=== PATIENT | female | born 1965 | race Caucasian/White ===

== ENCOUNTER → 2020-02-11 17:22 | Outpatient (CLI) | payer OTHER, SELFPAY ==
--- NOTE | ~2020-02-11 | XR_ITS ---
EXAMINATION: XR ribs LT 2V INDICATION: Left rib pain, pleurodynia, initial encounter TECHNIQUE: 3 views of the left ribs were obtained. COMPARISON: 01/19/2015 FINDINGS: There is an acute nondisplaced fracture at the anterolateral aspect of the left ninth rib. No additional acute rib fracture is identified. There is mild atelectasis of the left lung base. The heart size is normal. Calcified right lower paratracheal lymph nodes are consistent with old granulom atous disease. There is no pneumothorax. Surgical staple lines are noted in the abdomen. IMPRESSION: 1. Nondisplaced fracture at the anterolateral aspect of the left ninth rib. Reviewed, dictated and finalized at location A.
== END ==
PROVIDERS: PCP Family Medicine; Visit Provider Family Medicine
DX: S22.32XA Fracture of one rib, left side, initial encounter for closed fracture (principal); X58.XXXA Exposure to other specified factors, initial encounter
CPT/HCPCS: 71100

== ENCOUNTER 2023-04-10 17:08 | Emergency (ER) | payer OTHER, SELFPAY ==
--- NOTE | ~2023-04-10 | XR_ITS ---
EXAM: XR ankle RT min 3V DATE: 04/10/2023 17:51 HISTORY: FALL OFF OF TRUCK . COMPARISON: None available. FINDINGS: Decreased mineralization. No fracture or dislocation. No lytic or blastic lesion. Joint sp aces are maintained. Achilles and plantar enthesopathy. The No erosion or periosteal change. Soft tis sues within normal limits. IMPRESSION: No acute osseous finding in the right ankle. Reviewed, dictated and finalized at location K.
--- NOTE | ~2023-04-10 | XR_ITS ---
EXAM: XR knee RT min 4V DATE: 04/10/2023 17:51 HISTORY: FALL OFF OF TRUCK . COMPARISON: None available. FINDINGS: Decreased mineralization. No fracture or dislocation. No lytic or blastic lesion. Small vo lume joint fluid. Mild tricompartmental osteoarthritis. No erosion or periosteal change. Soft tissues within normal limits. IMPRESSION: No acute osseous finding in the right knee. Reviewed, dictated and finalized at location K.
--- NOTE | 2023-04-10 17:12 | ED.LOWEXIN ---
HPI - Extremity Injury (Lower) General Chief Complaint: Extremity Injury, Lower Stated Complaint: Right Knee/Foot Pain Time Seen by Provider: 04/10/23 17:11 Source: patient Mode of arrival: ambulatory Limitations: no limitations History of Present Illness HPI Narrative: Patient is a 50-year-old female presents with right knee and right ankle pain after stepping off the back of a truck. Patient states the drop was further than she thought and right leg gave out and went underneath her. Patient states she did hit left side of head on a bumper. Denies any LOC, headache, vision changes, nausea, vomiting. Reports new tingling to toes that is different than her normal neuropathy. States she notices swelling to knee it is painful to walk. Related Data Home Medications Medication Instructions Recorded Confirmed acetaminophen 300 mg-codeine 60 mg 1 tablet PO Q6-8H PRN Pain 04/10/23 04/10/23 tablet [facility] 04/10/23 Ultra Test strips) duloxetine 60 mg capsule,delayed 60 mg PO DAILY 04/10/23 04/10/23 release gabapentin 600 mg tablet 600 mg PO TID 04/10/23 04/10/23 lancets 33 gauge ([facility] 04/10/23 04/10/23 Plus Lancet) metoprolol succinate 50 mg 50 mg PO DAILY 04/10/23 04/10/23 tablet,extended release 24 hr pantoprazole 40 mg tablet,delayed 40 mg PO DAILY 04/10/23 04/10/23 release topiramate 50 mg tablet 50 mg PO BID 04/10/23 04/10/23 Allergies Allergy/AdvReac Type Severity Reaction Status Date / Time No Known Allergies Allergy Mild Verified 04/10/23 17:11 Review of Systems Review of Systems: All systems reviewed & are unremarkable except as noted in HPI and below Constitutional: Constitutional: Denies body ache(s), Denies chills, Denies fatigue, Denies fever(s), Denies headache(s), Denies malaise and Denies weakness Eyes: Eyes: Denies blurry vision, Denies irritation and Denies loss of vision ENT: Denies otalgia, Denies headache(s), Denies nasal discharge, Denies sinus pain and Denies sore throat Cardiovascular: Cardiovascular: Denies chest pain, Denies irregular heart rhythm and Denies dyspnea Respiratory: Respiratory: Denies dyspnea Gastrointestinal: Gastrointestinal: Denies abdominal pain, Denies melena, Denies hematochezia, Denies diarrhea, Denies nausea and Denies vomiting Musculoskeletal: Musculoskeletal: Denies back pain, Denies myalgias, Reports arthralgias and Reports joint swelling Integumentary/Breasts: Skin/Breast: Denies pruritus and Denies rash Neurologic: Denies headache(s), Denies loss of vision and Denies weakness Psychiatric: Psychiatric: Reports no additional psychiatric complaints Endocrine: Endocrine: Denies fatigue PMFSH Comments At time of signature, agree with nursing past medical, surgical, social and family history. There is no relevant family history pertinent to the presenting complaint. Exam Const: General: cooperative, healthy appearing, comfortable, no acute distress and well nourished Nutritional Appearance: well nourished Orientation/consciousness: patient oriented x3 Limitations: no limitations HENMT: Head: normal to inspection, normocephalic and atraumatic Ears: hearing grossly normal bilaterally and external ears normal Face/Nose/Sinus: Normal external nose present, normal facial exam and face symmetric Face and sinus: normal facial exam and face symmetric Mouth: Yes lip normal Eyes: General: appearance normal, both eyes and all related structures Alignment and Position: alignment normal and position normal Periorbital: periorbital findings normal Eyelids: eyelids normal Pupils: Equal, round and reactive pupils present EOM: EOMs intact bilaterally Neck: Neck: normal visual inspection, full ROM and supple Chest: Chest palpation & inspection: normal inspection of the chest Resp: Effort & Inspection: normal respiratory effort and able to speak in complete sentences Auscultation: clear to auscultation bilater
[2023-04-10 17:22] VITALS: BP 99/56; PULSE 80; RESP 12; TEMP 35.8; O2SAT 96
== END 2023-04-10 18:06 | disposition home or self-care (01) ==
PROVIDERS: Emergency Provider Nurse Practitioner Family; PCP Family Medicine
DX: S93.401A Sprain of unspecified ligament of right ankle, initial encounter (principal); S96.911A Strain of unspecified muscle and tendon at ankle and foot level, right foot, initial encounter; W17.89XA Other fall from one level to another, initial encounter; S86.911A Strain of unspecified muscle(s) and tendon(s) at lower leg level, right leg, initial encounter; I10 Essential (primary) hypertension; Z98.84 Bariatric surgery status; K21.9 Gastro-esophageal reflux disease without esophagitis; M19.90 Unspecified osteoarthritis, unspecified site
CPT/HCPCS: 73564; 73610; 99213; G0463

== ENCOUNTER 2023-07-26 18:15 | Emergency (ER) | payer OTHER, SELFPAY ==
--- NOTE | ~2023-07-26 | XR_ITS ---
EXAM: XR hip RT min 2V DATE: 07/26/2023 18:57 HISTORY: FALL 1 DAY AGO, PAIN WHILE WALKING . COMPARISON: None available. FINDINGS: Decreased mineralization. Mildly comminuted, medially angulated and mildly overlapping int ertrochanteric fracture of the right hip. No lytic or blastic lesion. Joint spaces are lumbar degener ative disc disease. No erosion or periosteal change. Anastomotic suture line over the lower abdomen. IMPRESSION: Intertrochanteric fracture of the right hip. Reviewed, dictated and finalized at location K.
[2023-07-26 18:24] VITALS: BP 117/68; PULSE 92; RESP 16; TEMP 36.8; O2SAT 97
--- NOTE | 2023-07-26 18:26 | ED.LOWEXIN ---
HPI - Extremity Injury (Lower) General Chief Complaint: Fall Stated Complaint: Right Thigh Pain Time Seen by Provider: 07/26/23 18:26 Source: patient and RN notes reviewed Mode of arrival: ambulatory Limitations: no limitations History of Present Illness HPI Narrative: 38-year-old female presents with concern for upper thigh pain. Reports she fell on her right side yesterday. Reports it is painful to walk. She denies bruising, swelling, redness, warmth. MD complaint: hip injury Related Data Home Medications Medication Instructions Recorded Confirmed acetaminophen 300 mg-codeine 60 mg 1 tablet PO Q6-8H PRN Pain 04/10/23 07/26/23 tablet blood sugar diagnostic (Counts include 234 beds at the [facility] 04/10/23 07/26/23 Ultra Test strips) duloxetine 60 mg capsule,delayed 60 mg PO DAILY 04/10/23 07/26/23 release gabapentin 600 mg tablet 600 mg PO TID 04/10/23 07/26/23 lancets 33 gauge (Counts include 234 beds at the [facility] Delica 04/10/23 07/26/23 Plus Lancet) metoprolol succinate 50 mg 50 mg PO DAILY 04/10/23 07/26/23 tablet,extended release 24 hr topiramate 50 mg tablet 50 mg PO BID 04/10/23 07/26/23 omeprazole 40 mg capsule,delayed 40 mg PO DAILY 07/26/23 07/26/23 release Allergies Allergy/AdvReac Type Severity Reaction Status Date / Time No Known Allergies Allergy Mild Verified 07/26/23 18:18 Review of Systems Review of Systems: CONSTITUTIONAL: Denies malaise, chills, sweats, or fever. SKIN: Denies rash or itching, open skin, laceration, abrasion, redness, warmth, swelling. MUSCULOSKELETAL: Reports right lateral thigh pain NEUROLOGIC: Denies numbness, weakness All systems reviewed & are unremarkable except as noted in HPI and below PMFSH Comments At time of signature, agree with nursing past medical, surgical, social and family history. There is no relevant family history pertinent to the presenting complaint Exam Narrative: GENERAL: Well-appearing, well-nourished, and in no acute distress. HEAD: Normocephalic, atraumatic. EYES: PERRLA, conjunctivae clear NECK: Supple. CHEST: Speaks in full sentences. No respiratory distress. HEART: Regular rate and rhythm. Normal and equal peripheral pulses. EXTREMITIES: Right hip has normal sensation, limited range of motion. No edema or ecchymosis. Lateral hip tenderness. No skin tenting, no devitalized tissue or atrophy, no trophic changes, no obvious deformity, nearby joints and structures intact. Distal pulses palpable and equal bilaterally, skin warm, dry, pink. Capillary refill less than 3 seconds. SKIN: Warm, dry, no rash. NEURO: Alert and oriented x3. PSYCH: Normal mood and affect Course Course Emergency Course: Patient is aware of diagnosis, understands and agrees to treatment plan. Anticipatory guidance given. Patient agrees to follow-up as directed and is aware of reasons to seek care at the emergency department. Portions of this record may have been created with voice recognition software Level of Care: Express Care Visit Vital Signs Vital signs: Vital Signs Temperature 98.3 F 07/26/23 18:24 Pulse Rate 92 07/26/23 18:24 Respiratory Rate 16 07/26/23 18:24 Blood Pressure 117/68 07/26/23 18:24 Pulse Oximetry 97 07/26/23 18:24 Oxygen Delivery Room Air 07/26/23 18:24 Temperature 98.3 F 07/26/23 18:24 Pulse Rate 92 07/26/23 18:24 Respiratory Rate 16 07/26/23 18:24 Blood Pressure 117/68 07/26/23 18:24 Pulse Oximetry 97 07/26/23 18:24 Oxygen Delivery Room Air 07/26/23 18:24 Reviewed. Transfer Transfered to: [place] [facility]: S Transfer rationale: Hip fracture Accepting physician: [place] Vazquez [facility] - Extremity Injury (Lower) [facility] Narrative Medical decision making narrative: Patients injury and pain is consistent with musculoskeletal etiology. No signs of neurological or vascular compromise on exam. Compartments and tissues are soft without signs of compartment syndrome. Pain is felt appropriate for further evaluation on an o
[2023-07-26] MEDS: ACETAMINOPHEN 500 MG TABLET 1000 MG PO (19:33)
== END 2023-07-26 19:50 | disposition short-term general hospital (02) ==
PROVIDERS: Emergency Provider Nurse Practitioner; PCP Family Medicine
DX: S72.141A Displaced intertrochanteric fracture of right femur, initial encounter for closed fracture (principal); Z79.899 Other long term (current) drug therapy; W19.XXXA Unspecified fall, initial encounter
CPT/HCPCS: 73502; 99215; A9270; G0463

== ENCOUNTER 2023-07-26 20:05 | Inpatient (IN) | payer OTHER, SELFPAY ==
--- NOTE | ~2023-07-26 | XR_ITS ---
EXAM: XR femur RT min 2V DATE: 07/26/2023 21:09 HISTORY: Right leg pain . COMPARISON: None available. FINDINGS: Decreased mineralization. Images of the femur somewhat limited by obliquity in multiple vi ews. Redemonstration of the right hip intertrochanteric fracture, which was better seen in the prior hip radiographs. No other fracture identified. No dislocation. No lytic or blastic lesion. Joint spac es and physes are maintained. No erosion or periosteal change. Soft tissues within normal limits. IMPRESSION: Right hip intertrochanteric fracture. Reviewed, dictated and finalized at location K.
--- NOTE | ~2023-07-26 | XR_ITS ---
EXAMINATION: XR chest 1V Exam Date/Time: 07/26/2023 21:00 CDT HISTORY: PRE OP Comparison: 02/11/2020. RESULT: Lines, tubes, and devices: Suture material overlying the GE junction. Lungs and pleura: No acute opacity. Annulus calcification. Cardiomediastinal silhouette: Stable. Other: No acute osseous or upper abdominal finding. IMPRESSION: No acute cardiopulmonary process. Reviewed, dictated and finalized at location K.
--- NOTE | ~2023-07-26 | XR_ITS ---
EXAMINATION: XR surgery orthopedic DATE: 07/28/2023 14:40 CDT INDICATION: RIGHT IT NAIL . TECHNIQUE: 5 fluoroscopic images of the right hip were obtained during right intertrochanteric nail p lacement performed by the surgeon. I was not present in the operating room. Fluoroscopy exposure time was 70.9 seconds. Air Kerma 16.97 mGy. DAP [id number] mGym2. COMPARISON: 07/26/2023 FINDINGS: Right intertrochanteric nail, in good position fixing an intertrochanteric fracture into near-anatomi c alignment. IMPRESSION: Fluoroscopic documentation of right intertrochanteric nail placement. Please refer to the operative n ote for complete procedural details . Reviewed, dictated and finalized at location K. IMPRESSION: Fluoroscopic documentation of right intertrochanteric nail placement. Please re emilio to the operative note for complete procedural details .
[2023-07-26 20:20] VITALS: BP 130/73; PULSE 83; RESP 18; TEMP 36.4; O2SAT 98
--- NOTE | 2023-07-26 20:41 | ED.LOWEXIN ---
HPI - Extremity Injury (Lower) General Chief Complaint: Extremity Injury, Lower Stated Complaint: RIGHT HIP FRACTURE History of Present Illness HPI Narrative: This is a 58-year-old female, with past history of diabetes, peripheral neuropathy, transferred from outside urgent care for right intertrochanteric femur fracture. The patient states yesterday, she tripped over a roommates oxygen tubing, landing on the right hip with immediate 7/10 dull pain. Despite this, the patient was able to ambulate throughout the day until being evaluated at an urgent care where x-rays showed an intertrochanteric fracture. The patient denies other injury, including head injury or loss of consciousness. Related Data Home Medications Medication Instructions Recorded Confirmed acetaminophen 300 mg-codeine 60 mg 1 tablet PO Q6-8H PRN Pain 04/10/23 07/27/23 tablet blood sugar diagnostic ([facility] 04/10/23 07/27/23 Ultra Test strips) duloxetine 60 mg capsule,delayed 60 mg PO DAILY 04/10/23 07/27/23 release gabapentin 600 mg tablet 600 mg PO TID 04/10/23 07/27/23 lancets 33 gauge ([facility] Delica 04/10/23 07/27/23 Plus Lancet) metoprolol succinate 50 mg 50 mg PO DAILY 04/10/23 07/27/23 tablet,extended release 24 hr topiramate 50 mg tablet 50 mg PO BID 04/10/23 07/27/23 omeprazole 40 mg capsule,delayed 40 mg PO DAILY 07/26/23 07/27/23 release Allergies Allergy/AdvReac Type Severity Reaction Status Date / Time No Known Allergies Allergy Mild Verified 07/26/23 20:26 Review of Systems Review of Systems: CONSTITUTIONAL: Denies fever, chills, or sweats. CARDIOVASCULAR: Denies chest pain, palpitations, or edema. RESPIRATORY: Denies cough or dyspnea. GASTROINTESTINAL: Denies abdominal pain, nausea, vomiting, or diarrhea. GENITOURINARY: Denies dysuria or hematuria. SKIN: Denies rash or itching. MUSCULOSKELETAL: Right hip pain denies back pain, or myalgia. NEUROLOGIC: Chronic bilateral lower extremity paresthesias denies headache, dizziness, or weakness. PSYCHIATRIC: Denies anxiety or depression. [facility] Past Medical History Medical History Diabetes mellitus Nicotine dependence, cigarettes, uncomplicated Peripheral neuropathy Tobacco abuse counseling Social History Social History Smoking packs per day: 1 Smoking cigarettes per day: 20.0 Years smoked: 40 Smoking pack-years: 40.00 Smoking status: Current every day smoker Tobacco type: cigarettes Alcohol intake: former Substance use: never Lack of Transportation: No Lack of Food: Sometimes True Current Housing: I Have Housing Concerned About Future Housing: No Difficulty Paying Gas/Electric Bills: No Difficulty Paying for Meds: No Currently Unemployed: No Education: High School Diploma/GED Difficulty w/ Childcare or Family Care: No Spiritual care concerns: No Exam Narrative: GENERAL: Well-developed, well-nourished, and in no acute distress. HEAD: Normocephalic, atraumatic. EYES: PERRLA and EOMI. ENT: Nares clear, no rhinorrhea or epistaxis. Mucous membranes moist. Oropharynx without tonsillar hypertrophy exudate or other lesions. NECK: Supple. No midline spine tenderness to palpation, no step-off or crepitus CHEST: Clear to auscultation. No respiratory distress. No wheezes rales or rhonchi HEART: Regular rate and rhythm. No murmur heard. Normal peripheral pulses. ABDOMEN: Soft, nontender, nondistended, normal active bowel sounds. BACK: No midline spine tenderness to palpation, no step-off or crepitus EXTREMITIES: The distal extremities appear equal length bilaterally. There is tenderness to palpation to the lateral and posterior aspect of the right hip at the greater trochanter. There is a 1 cm area of ecchymosis at the posterior aspect of the right hip. No edema. Range of motion of the right hip limited by pain. Nor
[2023-07-26] MEDS: MORPHINE SULFATE (*CRX) 2 MG/ML INJ IV PUSH (20:49)
[2023-07-26 20:52] LABS: Basophils Absolute Auto 0.1 K/mm3 (0.0-0.1); Basophils Percent Auto 0.5 % (0.2-1.2); Eosinophils Absolute Auto 0.2 K/mm3 (0-0.3); Eosinophils Percent Auto 1.5 % (0-4.4); Hematocrit 34.5 % (37.0-47.0); Hemoglobin 10.9 g/dL (12.0-15.0); Immature Granulocyte Absolute 0.05 K/mm3 (0.00-0.031); Immature Granulocyte Percent A 0.5 % (0-0.5); Lymphocytes Absolute Auto 0.84 K/mm3 (0.9-3.2); Lymphocytes Percent Auto 7.6 % (18.3-44.2); Mean Corpuscular HGB Conc 31.6 g/dl (32-36); Mean Corpuscular Hemoglobin 30.8 pg (26-34); Mean Corpuscular Volume 97.5 fl (80-100); Mean Platelet Volume 10.8 fl (7.4-10.4); Monocytes Absolute Auto 0.6 K/mm3 (0.1-0.6); Neutrophils Absolute Auto 9.4 K/mm3 (1.3-6.7); Neutrophils Percent Auto 84.9 % (45.5-73.1); Platelet Count Result 279 k/mm3 (150-375); Red Blood Count 3.54 M/mm3 (4.2-5.4); Red Cell Distribution Width 14.4 % (11.5-14.5); White Blood Count 11.1 K/mm3 (4.5-10.0)
[2023-07-26 21:05] LABS: Prothrombin Time 13.4 Seconds (11.1-14.7)
[2023-07-26 21:06] LABS: Alanine Aminotransferase 20 U/L (6-35); Albumin Level 3.2 g/dL (3.5-5.1); Alkaline Phosphatase 150 U/L (38-126); Anion Gap 7 mmol/L (8-16); Aspartate Amino Transferase 31 U/L (14-36); Bilirubin,Total 0.8 mg/dL (0.2-1.3); Blood Urea Nitrogen 21 mg/dL (7-17); Calcium 8.4 mg/dL (8.4-10.2); Carbon Dioxide 21 mmol/L (22-30); Chloride 109 mmol/L (98-107); Estimated CRCL calculation 51 ml/min; Estimated Glomerular Filt Rate 57; Glucose 82 mg/dL (65-110); Potassium 3.2 mmol/L (3.4-5.0); Sodium 137 mmol/L (137-145)
[2023-07-26] MEDS: POTASSIUM CHLORIDE 20 MEQ ER TABLET 40 MEQ PO (22:10)
[2023-07-26] MEDS: POTASSIUM CHLORIDE INJ 40 MEQ in SODIUM CHLORIDE 0.9% IV 500 ML 130 MEQ IVPB (22:11)
[2023-07-26 22:24] VITALS: O2SAT 95
[2023-07-26] MEDS: ALBUTEROL SULFATE NEB 2.5 MG/3 ML INH INHALATION (22:34)
[2023-07-26 22:35] VITALS: PULSE 86; RESP 16
[2023-07-26 22:44] VITALS: PULSE 88; RESP 18
--- NOTE | 2023-07-26 23:08 | PM.IMHP ---
H&P: HPI History of Present Illness Date/Time: 07/26/23 23:08 Chief Complaint: Patient was transferred here from the urgent care for right hip fracture Narrative: 58 years old white female with diabetes mellitus and chronic medical issues was at her house when she tripped over her roommate's oxygen tubing and landed on right hip. She complained of pain immediately in the right hip but was able to ambulate throughout the day until the pain got worse so she went to the urgent care. Evaluation was done with x-ray which showed intertrochanteric fracture and patient was brought to the ER for evaluation. Workup was done and orthopedic surgeon was consulted who wants to admit her and keep her NPO for surgery in the morning. Review of Systems Review of Systems: she denies any chest pain, palpitations, fever rigor chills, nausea vomiting, loss of consciousness or abdominal pain All systems reviewed & are unremarkable except as noted in HPI and below PMFSH Past Medical History Medical History (Updated 07/26/23 @ 23:33 by Alber Huang MD) Diabetes mellitus Nicotine dependence, cigarettes, uncomplicated Peripheral neuropathy Tobacco abuse counseling Social History Social History Smoking status: Current every day smoker Alcohol intake: never Substance use: never Meds Home Medications and Allergies Home Medications Medication Instructions Recorded Confirmed Type acetaminophen 300 mg-codeine 60 mg 1 tablet PO Q6-8H PRN Pain 04/10/23 07/26/23 History [facility]/10[facility] 07/26/23 History Ultra Test strips) duloxetine 60 mg capsule,delayed 60 mg PO DAILY 04/10/23 07/26/23 History release gabapentin 600 mg tablet 600 mg PO TID 04/10/23 07/26/23 History lancets 33 gauge ([facility] 04/10/23 07/26/23 History Plus Lancet) metoprolol succinate 50 mg 50 mg PO DAILY 04/10/23 07/26/23 History tablet,extended release 24 hr topiramate 50 mg tablet 50 mg PO BID 04/10/23 07/26/23 History omeprazole 40 mg capsule,delayed 40 mg PO DAILY 07/26/23 07/26/23 History release Allergies Allergy/AdvReac Type Severity Reaction Status Date / Time No Known Allergies Allergy Mild Verified 07/26/23 20:26 Vital Signs Vital Signs - 24 hr 07/26/23 20:20 07/26/23 22:24 07/26/23 22:35 Temperature 36.4 C L Pulse Rate 83 86 Respiratory Rate 18 16 Blood Pressure 130/73 Pulse Oximetry 98 95 Oxygen Delivery Room Air Nasal Cannula Oxygen Flow Rate 3 07/26/23 22:44 Temperature Pulse Rate 88 Respiratory Rate 18 Blood Pressure Pulse Oximetry Oxygen Delivery Oxygen Flow Rate Exam Narrative: PHYSICAL EXAMINATION: Vital signs: Please see the chart General physical exam: patient lying in bed, appears to be tired and fatigued, no acute did Head/eyes: Atraumatic, EOMI, PERRLA ENT: Moist mucous membranes, nasal passages clear Neck: Supple, full range of motion, trachea midline CVS: S1 + S2, regular rate and rhythm, no murmurs Respiratory: Bilaterally fair air entry in both lung patrick, mild B/L crackles, symmetric chest expansion, no distress Abdomen: Soft, non-tender, bowel sounds +ve, no organomegaly Extremities: No clubbing, no cyanosis, no edema, no calf tenderness Musculoskeletal: Moves all, right hip is shortened and externally rotated, no muscle spasms Skin: Warm, dry, no jaundice, no cyanosis Neurological: Awake, alert, oriented x 3, cranial nerves II-XII intact, no focal neurological deficits Psychiatric: Normal mood, non suicidal H&P: Results Labs Labs: Short CBC 07/26/23 Range/Units 20:47 WBC 11.1 H (4.5-10.0) K/mm3 Hgb 10.9 L (12.0-15.0) g/dL Hct 34.5 L (37.0-47.0) % Plt Count 279 (150-375) k/mm3 [facility] 07/26/23 20:47 Sodium 137 Potassium 3.2 L Chloride 109 H Carbon Dioxide 21 L BUN 21 H Creatinine 1.00 Glucose 82 Calcium 8.4 Liver Func
[2023-07-27] VITALS (9 sets, daily range): BP systolic 124–158; BP diastolic 68–86; PULSE 73–87; RESP 12–20; TEMP 36.2–36.6; O2SAT 94–99; BMI 24.5
--- NOTE | 2023-07-27 00:19 | ADMGEN ---
This patient, Jaylyn Mcgee Stone, was admitted to 3 [facility] Surg Room 309-01 at 2350. Patient/family oriented to hospital policies and general routines including ID bracelet, bed and alarms, visiting hours, pain management, procedures, bathroom and other care routines, personal items, smoking policy, room service/diet, and visiting hours. Information on how to activate the Rapid Response Team has been discussed. Patient/Family are encouraged to report perceived risks to care and to ask questions if they do not understand what they are told or what they should do.
[2023-07-27] MEDS: NICOTINE (*PBKC) 21 MG PATCH 1 PATCH TRANSDERM ×2 (01:00→10:33)
[2023-07-27] MEDS: MORPHINE SULFATE (*CRX) 2 MG/ML INJ IV PUSH ×3 (01:02→20:59)
[2023-07-27] MEDS: SODIUM CHLORIDE 0.9% IV 1,000 ML 125 ML IV CONT (02:52)
[2023-07-27 06:31] LABS: Basophils Absolute Auto 0.1 K/mm3 (0.0-0.1); Basophils Percent Auto 0.7 % (0.2-1.2); Eosinophils Absolute Auto 0.2 K/mm3 (0-0.3); Eosinophils Percent Auto 2.4 % (0-4.4); Hematocrit 32.8 % (37.0-47.0); Hemoglobin 10.2 g/dL (12.0-15.0); Immature Granulocyte Absolute 0.02 K/mm3 (0.00-0.031); Immature Granulocyte Percent A 0.3 % (0-0.5); Lymphocytes Absolute Auto 1.05 K/mm3 (0.9-3.2); Lymphocytes Percent Auto 14.1 % (18.3-44.2); Mean Corpuscular HGB Conc 31.1 g/dl (32-36); Mean Corpuscular Hemoglobin 30.8 pg (26-34); Mean Corpuscular Volume 99.1 fl (80-100); Monocytes Absolute Auto 0.5 K/mm3 (0.1-0.6); Monocytes Percent Auto 7.1 % (2.6-8.5); Neutrophils Absolute Auto 5.6 K/mm3 (1.3-6.7); Neutrophils Percent Auto 75.4 % (45.5-73.1); Platelet Count Result 254 k/mm3 (150-375); Red Blood Count 3.31 M/mm3 (4.2-5.4); Red Cell Distribution Width 14.4 % (11.5-14.5); White Blood Count 7.5 K/mm3 (4.5-10.0)
[2023-07-27 06:45] LABS: Anion Gap 2 mmol/L (8-16); Blood Urea Nitrogen 20 mg/dL (7-17); Carbon Dioxide 24 mmol/L (22-30); Chloride 113 mmol/L (98-107); Estimated CRCL calculation 56 ml/min; Estimated Glomerular Filt Rate > 60; Glucose 70 mg/dL (65-110); Magnesium 2.2 mg/dL (1.6-2.3); Phosphorus 3.4 mg/dL (2.5-4.5); Potassium 4.5 mmol/L (3.4-5.0); Sodium 139 mmol/L (137-145)
[2023-07-27 07:42] LABS: Glucose Point of Care 73 mg/dl (65-105)
--- NOTE | 2023-07-27 08:00 | ECG_ITS ---
Measurements Intervals [place] Rate: 77 P: 72 RI: 182 QRS: 26 QRSD: 84 T: 71 QT: 364 QTc: 413 Interpretive Statements SINUS RHYTHM NORMAL ELECTROCARDIOGRAM NO PREVIOUS ECG AVAILABLE FOR COMPARISON Electronically Signed On 07-27-2023 9:30:48 CDT by Harpreet Collins M.D.
--- NOTE | 2023-07-27 08:10 | PM.CNOR ---
Assessment and Plan Assessment and plan (1) Closed intertrochanteric fracture of right femur: Qualifiers: Encounter type: initial encounter Fracture alignment: nondisplaced Qualified Code(s): S72.144A - Nondisplaced intertrochanteric fracture of right femur, initial encounter for closed fracture Code(s): S72.141A - Displaced intertrochanteric fracture of right femur, initial encounter for closed fracture Status: Acute Plan Displaced intertrochanteric fracture. I reviewed the proposed procedure. Risks, benefits, and alternatives discussed. Surgery likely tomorrow, Friday afternoon. She is a potential candidate for home discharge. Proceed with ORIF right hip with IM nail. History of Present Illness HPI Consult date: 07/27/23 Chief complaint: Right Intertrochanteric Femur Fracture Narrative: Patient complains of acute hip pain. Fell from standing height. Was ambulatory for one day. No previous hip pain. Comfortable at rest. No numbness, tingling, or other associated symptoms. History of smoking, gastric bypass, DM, peripheral neuropathy. Review of Systems Review of Systems: Denies loss of consciousness. All systems reviewed & are unremarkable except as noted in HPI and below PMFSH Past Medical History Medical History Diabetes mellitus Nicotine dependence, cigarettes, uncomplicated Peripheral neuropathy Tobacco abuse counseling Social History Social History Smoking packs per day: 1 Smoking cigarettes per day: 20.0 Years smoked: 40 Smoking pack-years: 40.00 Smoking status: Current every day smoker Tobacco type: cigarettes Alcohol intake: former Substance use: never Lack of Transportation: No Lack of Food: Sometimes True Current Housing: I Have Housing Concerned About Future Housing: No Difficulty Paying Gas/Electric Bills: No Difficulty Paying for Meds: No Currently Unemployed: No Education: High School Diploma/GED Difficulty w/ Childcare or Family Care: No Spiritual care concerns: No Meds Home Medications and Allergies Home Medications Medication Instructions Recorded Confirmed Type acetaminophen 300 mg-codeine 60 mg 1 tablet PO Q6-8H PRN Pain 04/10/23 07/27/23 History tablet blood sugar diagnostic ([facility] 04/10/23 07/27/23 History Ultra Test strips) duloxetine 60 mg capsule,delayed 60 mg PO DAILY 04/10/23 07/27/23 History release gabapentin 600 mg tablet 600 mg PO TID 04/10/23 07/27/23 History lancets 33 gauge ([facility] [place]ica 04/10/23 07/27/23 History Plus Lancet) metoprolol succinate 50 mg 50 mg PO DAILY 04/10/23 07/27/23 History tablet,extended release 24 hr topiramate 50 mg tablet 50 mg PO BID 04/10/23 07/27/23 History omeprazole 40 mg capsule,delayed 40 mg PO DAILY 07/26/23 07/27/23 History release Allergies Allergy/AdvReac Type Severity Reaction Status Date / Time No Known Allergies Allergy Mild Verified 07/26/23 20:26 Vital Signs Vital Signs - 24 hr 07/26/23 20:20 07/26/23 22:24 07/26/23 22:35 Temperature 36.4 C L Pulse Rate 83 86 Respiratory Rate 18 16 Blood Pressure 130/73 Pulse Oximetry 98 95 Oxygen Delivery Room Air Nasal Cannula Oxygen Flow Rate 3 07/26/23 22:44 07/27/23 00:05 07/27/23 00:30 Temperature 36.4 C L Pulse Rate 88 87 Respiratory Rate 18 20 Blood Pressure 129/83 Pulse Oximetry 97 97 Oxygen Delivery Nasal Cannula Oxygen Flow Rate 2 07/27/23 05:03 Temperature 36.3 C L Pulse Rate 73 Respiratory Rate 16 Blood Pressure 124/68 Pulse Oximetry 99 Oxygen Delivery Oxygen Flow Rate Exam Narrative: Lower extremity shortened and externally rotated slightly. Const: General: no acute distress Eyes: General: appearance normal, both eyes and all related structures Resp: Effort & Inspection: normal respirat
[2023-07-27 11:33] LABS: Glucose Point of Care 138 mg/dl (65-105)
--- NOTE | 2023-07-27 11:45 | PC.NURSE ---
Addendum entered by Bethanie Jolley RN 07/27/23 19:27: Pt purse/bookbag put in cabinet and locked per pt request. Addendum entered by Bethanie Jolley RN 07/27/23 16:58: Pt had some nausea after eating lunch. Pt states that she normally doesn't eat until the evening. Pt thinks that the nausea was due to eating. Pt reports pain that was treated with [place]. Pt stated that the [place] helped. Pt resting now. Will continue to monitor pt. Original Note: Pt is A&O4 female who has participated and contributed in plan of care. Pt reports pain 07/06. Pt given pain medication that took the edge off, but didn't take it away . Pt to go to surgery tomorrow. Will continue to monitor pt.
--- NOTE | 2023-07-27 12:50 | PM.IMPN ---
Progress Note: A&P Assessment and Plan (1) Closed intertrochanteric fracture of right femur: Qualifiers: Encounter type: initial encounter Fracture alignment: nondisplaced Qualified Code(s): S72.144A - Nondisplaced intertrochanteric fracture of right femur, initial encounter for closed fracture Code(s): S72.141A - Displaced intertrochanteric fracture of right femur, initial encounter for closed fracture Status: Acute Assessment and Plan: Patient has right intertrochanteric fracture diagnosed on x-rays Keep patient NPO except meds after midnight Plan for surgery tomorrow Oral and IV pain meds p.r.n. as needed DVT prophylaxis, PT and OT per Orthopedic team. (2) Diabetes mellitus: Code(s): E11.9 - Type 2 diabetes mellitus without complications Status: Acute Assessment and Plan: Insulin Lispro sliding scale, Accu-checks qAc and HS and Hold oral hypoglycemics Initiate hypoglycemic precautions (3) Nicotine dependence, cigarettes, uncomplicated: Code(s): F17.210 - Nicotine dependence, cigarettes, uncomplicated Status: Acute Assessment and Plan: Nicotine patch p.r.n. (4) Peripheral neuropathy: Code(s): G62.9 - Polyneuropathy, unspecified Status: Acute Assessment and Plan: continue gabapentin Subjective Date/time seen: 07/27/23 12:50 Interval history: Patient doing well but continues to have right hip pain. Plan for surgery tomorrow. Exam Narrative: GENERAL: Comfortable, no acute distress HENMT: moist mucous membranes EYES: EOM intact b/l NECK: no lymphadenopathy RESPIRATORY: clear to auscultation CARDIO: RRR GI: soft, nontender, bowel sounds present SKIN: no rashes EXTREMITIES: no edema, redness or tenderness Objective Data Vital Signs Vital Signs: Vital Signs - 24 hr 07/26/23 20:20 07/26/23 22:24 07/26/23 22:35 Temperature 97.5 F L Pulse Rate 83 86 Respiratory Rate 18 16 Blood Pressure 130/73 Pulse Oximetry 98 95 Oxygen Delivery Room Air Nasal Cannula Oxygen Flow Rate 3 07/26/23 22:44 07/27/23 00:05 07/27/23 00:30 Temperature 97.5 F L Pulse Rate 88 87 Respiratory Rate 18 20 Blood Pressure 129/83 Pulse Oximetry 97 97 Oxygen Delivery Nasal Cannula Oxygen Flow Rate 2 07/27/23 05:03 07/27/23 08:00 07/27/23 09:09 Temperature 97.4 F L 97.1 F L Pulse Rate 73 80 Respiratory Rate 16 12 Blood Pressure 124/68 140/81 Pulse Oximetry 99 97 97 Oxygen Delivery Nasal Cannula Oxygen Flow Rate 2 07/27/23 09:49 Temperature Pulse Rate Respiratory Rate Blood Pressure Pulse Oximetry 95 Oxygen Delivery Nasal Cannula Oxygen Flow Rate 2 Intake/Output Intake/Output: Intake & Output 07/24/23 07/25/23 07/26/23 07/27/23 23:59 23:59 23:59 23:59 Intake Total 760 Output Total 350 Balance 410 Meds/Results Medications: Active Medications Generic Name Dose Route Start Last Admin Trade Name Freq PRN Reason Stop Dose Admin Acetaminophen 650 mg 07/26/23 23:29 Acetaminophen 325 Mg Tablet PO Q4H PRN Mild Pain (1-3) or Fever Al Hydrox/Mg Hydrox/Simethicone 30 ml 07/26/23 23:29 Mag Hydrox/Al Hydrox/Simeth 30 Ml Udc PO QID PRN Dyspepsia Dextrose 12.5 gm 07/26/23 22:51 Dextrose 50% 25 Gm/50 Ml Syringe IV PUSH PRN PRN Hypoglycemia Protocol Glucagon 1 mg 07/26/23 22:51 Glucagon For Inj 1 Mg Vial IM PRN PRN Hypoglycemia Protocol Glucose 15 gm 07/26/23 22:51 Glucose Oral Gel 15 Gm Of Glucse In 37.5 Gm Tube PO PRN PRN Hypoglycemia Protocol Sodium Chloride 1,000 mls @ 125 mls/hr 07/26/23 22:50 07/27/23 02:52 Normal Saline Iv IV CONT 125 mls/hr .Q8H HANH Administration Dextrose 1,000 mls @ 100 mls/hr 07/26/23 22:51 Dextrose 5% 1,000 Ml IVPB PRN PRN Hypoglycemia Protocol Cefazolin Sodium 2 gm in 50 mls @ 100 mls/hr 10
[2023-07-27] MEDS: HYDROcodone/acetaminophen (*CRX) 5-325 MG TABLET 1 TAB PO ×2 (13:50→18:54)
[2023-07-27 16:37] LABS: Glucose Point of Care 77 mg/dl (65-105)
[2023-07-27 20:09] LABS: Glucose Point of Care 93 mg/dl (65-105)
[2023-07-28] VITALS (22 sets, daily range): BP systolic 125–185; BP diastolic 68–87; PULSE 85–102; RESP 12–18; TEMP 35.7–36.6; O2SAT 93–100
[2023-07-28] MEDS: MORPHINE SULFATE (*CRX) 2 MG/ML INJ IV PUSH ×4 (01:44→21:22)
[2023-07-28 06:55] LABS: Basophils Percent Auto 0.3 % (0.2-1.2); Eosinophils Absolute Auto 0.1 K/mm3 (0-0.3); Eosinophils Percent Auto 0.5 % (0-4.4); Hematocrit 36.5 % (37.0-47.0); Hemoglobin 11.4 g/dL (12.0-15.0); Immature Granulocyte Absolute 0.04 K/mm3 (0.00-0.031); Immature Granulocyte Percent A 0.3 % (0-0.5); Lymphocytes Absolute Auto 0.61 K/mm3 (0.9-3.2); Lymphocytes Percent Auto 4.4 % (18.3-44.2); Mean Corpuscular HGB Conc 31.2 g/dl (32-36); Mean Corpuscular Hemoglobin 30.9 pg (26-34); Mean Corpuscular Volume 98.9 fl (80-100); Mean Platelet Volume 11.1 fl (7.4-10.4); Monocytes Absolute Auto 0.5 K/mm3 (0.1-0.6); Monocytes Percent Auto 3.7 % (2.6-8.5); Neutrophils Absolute Auto 12.5 K/mm3 (1.3-6.7); Neutrophils Percent Auto 90.8 % (45.5-73.1); Platelet Count Result 328 k/mm3 (150-375); Red Blood Count 3.69 M/mm3 (4.2-5.4); Red Cell Distribution Width 14.4 % (11.5-14.5); White Blood Count 13.7 K/mm3 (4.5-10.0)
[2023-07-28 07:01] LABS: Anion Gap 5 mmol/L (8-16); Blood Urea Nitrogen 13 mg/dL (7-17); Calcium 8.3 mg/dL (8.4-10.2); Carbon Dioxide 22 mmol/L (22-30); Chloride 111 mmol/L (98-107); Estimated CRCL calculation 71 ml/min; Estimated Glomerular Filt Rate > 60; Glucose 85 mg/dL (65-110); Potassium 4.2 mmol/L (3.4-5.0); Sodium 138 mmol/L (137-145)
[2023-07-28] MEDS: ALBUTEROL SULFATE NEB 2.5 MG/3 ML INH INHALATION ×3 (07:28→20:22)
[2023-07-28] MEDS: IPRATROPIUM BR 0.02% INH SOLN 0.5 MG/2.5 ML VIAL INHALATION ×3 (07:28→20:21)
[2023-07-28 07:47] LABS: Glucose Point of Care 85 mg/dl (65-105)
[2023-07-28] MEDS: LACTATED RINGERS 1,000 ML 30 ML IV CONT ×2 (08:41→13:42)
[2023-07-28] MEDS: NICOTINE (*PBKC) 21 MG PATCH 1 PATCH TRANSDERM (08:42)
--- NOTE | 2023-07-28 10:56 | WPDHPUPDATE1 ---
History and Physical Update Update Date/Time: 07/28/23 10:56 History and Physical has been reviewed, including an updated exam of the patient. There are NO changes in the patient's condition. Risks, benefits, and alternatives have been discussed and questions answered. Patient agrees to proceed with procedure.
[2023-07-28 11:16] LABS: Glucose Point of Care 88 mg/dl (65-105)
--- NOTE | 2023-07-28 12:10 | PM.IMPN ---
Progress Note: A&P Assessment and Plan (1) Closed intertrochanteric fracture of right femur: Qualifiers: Encounter type: initial encounter Fracture alignment: nondisplaced Qualified Code(s): S72.144A - Nondisplaced intertrochanteric fracture of right femur, initial encounter for closed fracture Code(s): S72.141A - Displaced intertrochanteric fracture of right femur, initial encounter for closed fracture Status: Acute Assessment and Plan: Patient has right intertrochanteric fracture diagnosed on x-rays Right hip ORIF today at 3:00 p.m. Oral and IV pain meds p.r.n. as needed DVT prophylaxis, PT and OT per Orthopedic team. (2) Diabetes mellitus: Code(s): E11.9 - Type 2 diabetes mellitus without complications Status: Acute Assessment and Plan: Insulin Lispro sliding scale, Accu-checks qAc and HS and Hold oral hypoglycemics Initiate hypoglycemic precautions (3) Nicotine dependence, cigarettes, uncomplicated: Code(s): F17.210 - Nicotine dependence, cigarettes, uncomplicated Status: Acute Assessment and Plan: Nicotine patch p.r.n. (4) Peripheral neuropathy: Code(s): G62.9 - Polyneuropathy, unspecified Status: Acute Assessment and Plan: continue gabapentin Subjective Date/time seen: 07/28/23 12:10 Interval history: Patient continues to have right hip pain. She is scheduled for surgery this afternoon. Exam Narrative: GENERAL: Comfortable, no acute distress HENMT: moist mucous membranes EYES: EOM intact b/l NECK: no lymphadenopathy RESPIRATORY: clear to auscultation CARDIO: RRR GI: soft, nontender, bowel sounds present SKIN: no rashes EXTREMITIES: no edema, redness or tenderness Objective Data Vital Signs Vital Signs: Vital Signs - 24 hr 07/27/23 20:00 07/27/23 20:00 07/27/23 23:13 Temperature 97.8 F 97.9 F Pulse Rate 81 73 Respiratory Rate 16 15 Blood Pressure 158/86 H 154/83 H Pulse Oximetry 97 94 96 Oxygen Delivery Nasal Cannula Oxygen Flow Rate 2 07/28/23 04:00 07/28/23 07:25 07/28/23 07:25 Temperature 97.8 F Pulse Rate 90 93 93 Respiratory Rate 15 18 18 Blood Pressure 156/87 H Pulse Oximetry 97 97 Oxygen Delivery Nasal Cannula Oxygen Flow Rate 2 07/28/23 07:35 07/28/23 08:00 07/28/23 08:00 Temperature 96.3 F L Pulse Rate 90 88 Respiratory Rate 18 18 Blood Pressure 125/77 Pulse Oximetry 96 94 Oxygen Delivery Nasal Cannula Oxygen Flow Rate 2 Intake/Output Intake/Output: Intake & Output 07/25/23 07/26/23 07/27/23 07/28/23 23:59 23:59 23:59 23:59 Intake Total 1550 Output Total 350 2000 Balance 1200 -2000 Meds/Results Medications: Active Medications Generic Name Dose Route Start Last Admin Trade Name Freq PRN Reason Stop Dose Admin Acetaminophen 650 mg 07/26/23 23:29 Acetaminophen 325 Mg Tablet PO Q4H PRN Mild Pain (1-3) or Fever Hydrocodone Bitart/Acetaminophen 1 tab 07/27/23 13:35 07/27/23 18:54 Hydrocodone/Acetaminophen (*Crx) 5-325 Mg Tablet PO 1 tab Q4H PRN Administration Pain Rated 4-6 Al Hydrox/Mg Hydrox/Simethicone 30 ml 07/26/23 23:29 Mag Hydrox/Al Hydrox/Simeth 30 Ml Udc PO QID PRN Dyspepsia Albuterol 2.5 mg 07/28/23 08:00 07/28/23 07:28 Albuterol Sulfate Neb 2.5 Mg/3 Ml Inh INHALATION 2.5 mg Q6HRT HANH Administration Dextrose 12.5 gm 07/26/23 22:51 Dextrose 50% 25 Gm/50 Ml Syringe IV PUSH PRN PRN Hypoglycemia Protocol Glucagon 1 mg 07/26/23 22:51 Glucagon For Inj 1 Mg Vial IM PRN PRN Hypoglycemia Protocol Glucose 15 gm 07/26/23 22:51 Glucose Oral Gel 15 Gm Of Glucse In 37.5 Gm Tube PO PRN PRN Hypoglycemia Protocol Dextrose 1,000 mls @ 100 mls/hr 07/26/23 22:51 Dextrose 5% 1,000 Ml IVPB PRN PRN Hypoglycemia Protocol Lactated Ringer's 1,000 mls @ 30 mls/hr 07/28
--- NOTE | 2023-07-28 13:40 | WPDANESEPPF ---
Anes - Initial Pre Proc Eval Procedure: Operation Date: 07/28/23 15:00 Proposed Procedures p Right Hip Gamma Nail - Juno Klein MD Date/Time: 07/28/23 13:40 Surgeon: Alber Huang MD Pre Op Diagnosis: Right Intertrochanteric Femur Fracture Patient Data Age: 58 Gender: F Height: 1.68 m Weight: 71.8 kg Last Vital Signs Temp 35.7 C L 07/28/23 08:00 Pulse 89 07/28/23 13:15 Resp 18 07/28/23 13:15 BP 125/77 07/28/23 08:00 Pulse Ox 94 07/28/23 08:00 O2 Del Method Nasal Cannula 07/28/23 08:00 O2 Flow Rate 2 07/28/23 08:00 Allergies Allergy/AdvReac Type Severity Reaction Status Date / Time No Known Allergies Allergy Mild Verified 07/26/23 20:26 Home Medications Medication Instructions Recorded Confirmed Type acetaminophen 300 mg-codeine 60 mg 1 tablet PO Q6-8H PRN Pain 04/10/23 07/27/23 History tablet blood sugar diagnostic ([facility] 04/10/23 07/27/23 History Ultra Test strips) duloxetine 60 mg capsule,delayed 60 mg PO DAILY 04/10/23 07/27/23 History release gabapentin 600 mg tablet 600 mg PO TID 04/10/23 07/27/23 History lancets 33 gauge ([facility] Delica 04/10/23 07/27/23 History Plus Lancet) metoprolol succinate 50 mg 50 mg PO DAILY 04/10/23 07/27/23 History tablet,extended release 24 hr topiramate 50 mg tablet 50 mg PO BID 04/10/23 07/27/23 History omeprazole 40 mg capsule,delayed 40 mg PO DAILY 07/26/23 07/27/23 History release Laboratory Tests 07/27/23 07/27/23 07/28/23 16:34 19:37 06:24 WBC 13.7 H K/mm3 (4.5-10.0) RBC 3.69 L M/mm3 (4.2-5.4) Hgb 11.4 L g/dL (12.0-15.0) Hct 36.5 L % (37.0-47.0) MCV 98.9 fl (80-100) MCH 30.9 pg (26-34) MCHC 31.2 L g/dl (32-36) RDW 14.4 % (11.5-14.5) Plt Count 328 k/mm3 (150-375) MPV 11.1 H fl (7.4-10.4) Immature Gran % (Auto) 0.3 % (0-0.5) Neut % (Auto) 90.8 H % (45.5-73.1) Lymph % (Auto) 4.4 L % (18.3-44.2) [place] % (Auto) 3.7 % (2.6-8.5) Eos % (Auto) 0.5 % (0-4.4) Baso % (Auto) 0.3 % (0.2-1.2) Lymph # (Auto) 0.61 L K/mm3 (0.9-3.2) [place] # (Auto) 0.5 K/mm3 (0.1-0.6) Eos # (Auto) 0.1 K/mm3 (0-0.3) Baso # (Auto) 0.0 K/mm3 (0.0-0.1) Abs Immat Gran (auto) 0.04 H K/mm3 (0.00-0.031) Absolute Neuts (auto) 12.5 H K/mm3 (1.3-6.7) Absolute Nucleated RBC 0.0 K/mm3 (0.0-0.012) Nucleated RBC % 0.0 % (0.0-0.2) Sodium 138 mmol/L (137-145) Potassium 4.2 mmol/L (3.4-5.0) Chloride 111 H mmol/L (98-107) Carbon Dioxide 22 mmol/L (22-30) Anion Gap 5 L mmol/L (8-16) BUN 13 D mg/dL (7-17) Creatinine 0.70 mg/dL (0.7-1.0) Estim Creat Clear Calc 71 ml/min Estimated GFR > 60 (59 - ) Glucose 85 mg/dL (65-110) POC Capillary Glucose 77 mg/dl 93 mg/dl (65-105) (65-105) Calcium 8.3 L mg/dL (8.4-10.2) 07/28/23 07/28/23 07:24 11:04 WBC RBC Hgb Hct MCV MCH MCHC RDW Plt Count MPV Immature Gran % (Auto) Neut % (Auto) Lymph % (Auto) [place] % (Auto) Eos % (Auto) Baso % (Auto) Lymph # (Auto) [place] # (Auto) Eos # (Auto) Baso # (Auto) Abs Immat Gran (auto) Absolute Neuts (auto) Absolute Nucleated RBC Nucleated RBC % Sodium Potassium Chloride Carbon Dioxide Anion Gap BUN Creatinine Estim Creat Clear Calc Estimated GFR Glucose POC Capillary Glucose 85 mg/dl 88 mg/dl (65-105) (65-105) Calcium
[2023-07-28] MEDS: TRANEXAMIC ACID 1,000MG/ISO100 1,000 MG/100 ML BAG 200 MG IVPB (13:43)
[2023-07-28 14:00] LABS: Glucose Point of Care 85 mg/dl (65-105)
[2023-07-28] MEDS: ceFAZolin 2 GM/D5W 50 ML 2 GM/50 ML BAG IVPB ×2 (14:20→20:20)
[2023-07-28] MEDS: fentaNYL CITRATE INJ (*CRX) 100 MCG/2 ML VIAL 25 MCG IV PUSH ×8 (15:27→15:48)
[2023-07-28] MEDS: HYDROmorphone HCL INJ (*CRX) 1 MG/ML SYR 0.5 MG IV PUSH ×4 (15:50→16:14)
--- NOTE | 2023-07-28 15:50 | W.PM.PROC2 ---
Procedure Note - Detailed Date of Procedure 07/28/23 Pre-op Diagnosis Right Intertrochanteric Femur Fracture Post-op Diagnosis Same Procedure Performed ORIF right hip intertrochanteric fracture with IM Cephalomedullary pawel. Surgeon Juno Klein MD Devops Architect Colleen Cano PA-C Anesthesia General Description of Procedure The patient was given a general anesthetic, then carefully placed in fracture table. Sterile prep and drape performed in the usual fashion. Sterile curtain was used. Gentle traction was utilized to reduce the fracture. Fluoroscopy was used to confirm anatomic reduction and a proper placement of the implants. A longitudinal incision was created at the tip of the trochanter. The deep fascia was incised. The cannulated awl was used to open the proximal femur. The guidewire was placed across the fracture. The reamer was used to open the canal. The gamma nail was placed across the fracture site. A separate incision was made for placement of the cannulated guide sleeve. The guide pin was placed in the center of the femoral head. Appropriate measurement was taken. The pin was over reamed. The screw was placed with excellent purchase. The set screw was placed proximally and backed out a quater turn. The distal locking screw was placed. The jig was removed. The wound was irrigated. The deep fascia was closed with #1 Vicryl suture followed by 2-0 Vicryl suture and meka. Sterile dressing was applied. The patient was transferred to the recovery room in stable condition. There were no complications. Physician surgical first assistant, Colleen Cano PA-C, required for surgery; including patient positioning, draping, tissue retraction, maintaining jig position, wound closure, and dressing placement. Implants 11x 180 125 degree [place] gamma nail. 100 mm lag screw. 42.5mm locking screw. Estimated Blood Loss -100.0 Urine Output -200.0 Pathology None sent Complications No immediate complications Condition Stable Disposition PACU [facility] Billing Surgery - Charge Forward: Surgery Billing
[2023-07-28 16:02] LABS: Glucose Point of Care 88 mg/dl (65-105)
[2023-07-28] MEDS: ACETAMINOPHEN 500 MG TABLET 1000 MG PO (18:03)
[2023-07-28] MEDS: SODIUM CHLORIDE 0.9% IV 1,000 ML 125 ML IV CONT (18:04)
[2023-07-28] MEDS: SENNA/DOCUSATE SODIUM TABLET 2 TAB PO (18:04)
[2023-07-28] MEDS: FAMOTIDINE 20 MG TABLET PO (20:21)
[2023-07-28 20:28] LABS: Glucose Point of Care 240 mg/dl (65-105)
[2023-07-29] VITALS (18 sets, daily range): BP systolic 123–154; BP diastolic 66–81; PULSE 85–105; RESP 12–18; TEMP 36.4–36.9; O2SAT 90–96
[2023-07-29] MEDS: ACETAMINOPHEN 500 MG TABLET 1000 MG PO ×4 (00:19→17:57)
[2023-07-29] MEDS: ALBUTEROL SULFATE NEB 2.5 MG/3 ML INH INHALATION ×4 (02:44→21:01)
[2023-07-29] MEDS: IPRATROPIUM BR 0.02% INH SOLN 0.5 MG/2.5 ML VIAL INHALATION ×4 (02:44→21:01)
[2023-07-29] MEDS: MORPHINE SULFATE (*CRX) 2 MG/ML INJ IV PUSH ×4 (02:53→17:48)
[2023-07-29] MEDS: ceFAZolin 2 GM/D5W 50 ML 2 GM/50 ML BAG IVPB ×2 (05:18→14:00)
[2023-07-29 07:02] LABS: Alanine Aminotransferase 16 U/L (6-35); Albumin Level 2.9 g/dL (3.5-5.1); Alkaline Phosphatase 133 U/L (38-126); Anion Gap 5 mmol/L (8-16); Aspartate Amino Transferase 21 U/L (14-36); Bilirubin,Total 0.4 mg/dL (0.2-1.3); Blood Urea Nitrogen 13 mg/dL (7-17); Calcium 8.3 mg/dL (8.4-10.2); Carbon Dioxide 21 mmol/L (22-30); Chloride 110 mmol/L (98-107); Estimated CRCL calculation 71 ml/min; Estimated Glomerular Filt Rate > 60; Glucose 82 mg/dL (65-110); Potassium 4.1 mmol/L (3.4-5.0); Sodium 136 mmol/L (137-145)
[2023-07-29 07:16] LABS: Basophils Percent Auto 0.2 % (0.2-1.2); Hemoglobin 11.1 g/dL (12.0-15.0); Immature Granulocyte Absolute 0.08 K/mm3 (0.00-0.031); Immature Granulocyte Percent A 0.5 % (0-0.5); Lymphocytes Absolute Auto 0.76 K/mm3 (0.9-3.2); Lymphocytes Percent Auto 4.5 % (18.3-44.2); Mean Corpuscular HGB Conc 31.7 g/dl (32-36); Mean Corpuscular Volume 97.8 fl (80-100); Mean Platelet Volume 10.9 fl (7.4-10.4); Monocytes Absolute Auto 0.9 K/mm3 (0.1-0.6); Monocytes Percent Auto 5.1 % (2.6-8.5); Neutrophils Absolute Auto 15.1 K/mm3 (1.3-6.7); Neutrophils Percent Auto 89.7 % (45.5-73.1); Platelet Count Result 344 k/mm3 (150-375); Red Blood Count 3.58 M/mm3 (4.2-5.4); Red Cell Distribution Width 14.2 % (11.5-14.5); White Blood Count 16.8 K/mm3 (4.5-10.0)
--- NOTE | 2023-07-29 07:50 | WPDANESPN ---
Anes - Prog Note Post-Op Date/Time: 07/29/23 07:50 Cardiovascular status: normal Respiratory status: normal Airway patency: baseline Mental status: baseline Post-Op hydration status: normal Vital Signs: Last Vital Signs Temp 36.5 C 07/29/23 05:16 Pulse 95 07/29/23 05:16 Resp 12 07/29/23 05:16 BP 132/66 07/29/23 05:16 Pulse Ox 90 07/29/23 05:16 O2 Del Method Room Air 07/28/23 20:22 O2 Flow Rate 2 07/28/23 16:35 Pain Score (VAS): 0 I/O: Intake & Output 07/28/23 07/28/23 07/29/23 15:59 23:59 07:59 Intake Total 150 810 550 Output Total 850 270 Balance -700 540 550 Laboratory Tests 07/29/23 06:31 07/28/23 07/28/23 07/28/23 11:04 13:57 15:59 WBC RBC Hgb Hct MCV MCH MCHC RDW Plt Count MPV Immature Gran % (Auto) Neut % (Auto) Lymph % (Auto) [place] % (Auto) Eos % (Auto) Baso % (Auto) Lymph # (Auto) [place] # (Auto) Eos # (Auto) Baso # (Auto) Abs Immat Gran (auto) Absolute Neuts (auto) Absolute Nucleated RBC Nucleated RBC % Sodium Potassium Chloride Carbon Dioxide Anion Gap BUN Creatinine Estim Creat Clear Calc Estimated GFR Glucose POC Capillary Glucose 88 85 88 Calcium Total Bilirubin AST ALT Alkaline Phosphatase Total Protein Albumin 07/28/23 07/29/23 20:08 06:31 WBC Pending RBC Pending Hgb Pending Hct Pending MCV Pending MCH Pending MCHC Pending RDW Pending Plt Count Pending MPV Pending Immature Gran % (Auto) Pending Neut % (Auto) Pending Lymph % (Auto) Pending [place] % (Auto) Pending Eos % (Auto) Pending Baso % (Auto) Pending Lymph # (Auto) Pending [place] # (Auto) Pending Eos # (Auto) Pending Baso # (Auto) Pending Abs Immat Gran (auto) Pending Absolute Neuts (auto) Pending Absolute Nucleated RBC Pending Nucleated RBC % Pending Sodium 136 L Potassium 4.1 Chloride 110 H Carbon Dioxide 21 L Anion Gap 5 L BUN 13 Creatinine 0.70 Estim Creat Clear Calc 71 Estimated GFR > 60 Glucose 82 POC Capillary Glucose 240 H Calcium 8.3 L Total Bilirubin 0.4 AST 21 ALT 16 Alkaline Phosphatase 133 H Total Protein 6.0 L Albumin 2.9 L Post-procedural complaints: none Patient Feedback: Patient satisfied with anesthetic care.
[2023-07-29 07:52] LABS: Glucose Point of Care 81 mg/dl (65-105)
[2023-07-29] MEDS: ENOXAPARIN 30 MG/0.3 ML SYRINGE SUB-Q (08:16)
[2023-07-29] MEDS: FAMOTIDINE 20 MG TABLET PO ×2 (08:17→21:16)
[2023-07-29] MEDS: NICOTINE (*PBKC) 21 MG PATCH 1 PATCH TRANSDERM (08:17)
[2023-07-29] MEDS: oxyCODONE HCL (*CRX) 5 MG TAB IR 10 MG PO ×2 (11:10→21:16)
[2023-07-29 12:15] LABS: Glucose Point of Care 86 mg/dl (65-105)
--- NOTE | 2023-07-29 13:44 | PM.PNORT ---
Progress Note: A&P Assessment and Plan (1) Closed intertrochanteric fracture of right femur: Qualifiers: Encounter type: initial encounter Fracture alignment: nondisplaced Qualified Code(s): S72.144A - Nondisplaced intertrochanteric fracture of right femur, initial encounter for closed fracture Code(s): S72.141A - Displaced intertrochanteric fracture of right femur, initial encounter for closed fracture Status: Acute Assessment and Plan: POD #1 ORIF right hip intertrochanteric fracture with IM Cephalomedullary nail. Pain controlled with medications. She is eager to go home. She has a granddaughter and friend that live with her. Discussed with Dr. Klein who is okay with her going home if she does not want to do a short stay in inpatient rehab. She has had initial PT/OT and is tolerating it well. She will likely need a few days in the hospital to work on strength and PT if she goes home. Ortho instructions: Follow up in office in 2 weeks with xrays and for staple removal. Remove meka at 2 weeks post op in office. Daily dressing changes until healed. Do not soak in water. Weight bearing as tolerated with walker. DVT prophylaxis: continue Lovenox for 30 days total Pain medication: Oxycodone Subjective Subjective Date/Time Seen: 07/29/23 13:44 Interval history: Patient up walking with formal physical therapy at the time of my visit. Notes pain with walking. Pain improves at rest. She is eager to go home at discharge and does not want to go to rehab. No numbness or tingling. Review of Systems Review of Systems: All systems reviewed & are unremarkable except as noted in HPI and below Exam Narrative: Overweight 58 y/o female. Resting comfortably in bed. Wearing compression socks bilaterally. Dressing dry and intact with no drainage. Moderate swelling. No edema. No ecchymosis. No erythema. No hematoma. Range of motion limited due to pain. Calf nontender. Thigh nontender. No varicosities. Distal pulses palpable. Wiggles toes. Objective Data Vital Signs Vital Signs: Vital Signs - 24 hr 07/28/23 15:22 07/28/23 16:20 07/28/23 16:35 Temperature 97.2 F L Pulse Rate 88 85 88 Respiratory Rate 18 16 18 Blood Pressure 160/79 H 165/75 H 168/76 H Pulse Oximetry 100 99 98 Oxygen Delivery Simple Face Mask Nasal Cannula Nasal Cannula Oxygen Flow Rate 6 2 2 07/28/23 15:35 07/28/23 15:50 07/28/23 16:05 Temperature Pulse Rate 86 86 89 Respiratory Rate 18 18 18 Blood Pressure 168/86 H 185/72 H 181/77 H Pulse Oximetry 98 100 100 Oxygen Delivery Simple Face Mask Simple Face Mask Simple Face Mask Oxygen Flow Rate 6 6 6 07/28/23 16:00 07/28/23 17:27 07/28/23 18:27 Temperature 96.7 F L 96.7 F L 96.7 F L Pulse Rate 98 94 102 H Respiratory Rate 18 18 18 Blood Pressure 162/74 H 151/76 H 148/68 H Pulse Oximetry 98 98 98 Oxygen Delivery Oxygen Flow Rate 07/28/23 20:22 07/28/23 20:23 07/28/23 20:31 Temperature Pulse Rate 96 96 92 Respiratory Rate 18 18 18 Blood Pressure Pulse Oximetry 94 Oxygen Delivery Room Air Oxygen Flow Rate 07/28/23 20:00 07/28/23 20:00 07/28/23 21:06 Temperature 97.7 F 97.7 F Pulse Rate 100 100 Respiratory Rate 16 16 Blood Pressure 134/76 134/76 Pulse Oximetry 94 94 94 Oxygen Delivery Room Air Oxygen Flow Rate 07/28/23 23:45 07/29/23 02:02 07/29/23 02:45 Temperature 97.7 F 97.7 F Pulse Rate 100 100 85 Respiratory Rate 12 12 18 Blood Pressure 138/71 130/71 Pulse Oximetry 93 93 Oxygen Delivery Oxygen Flow Rate 07/29/23 02:54 07/29/23 05:16 07/29/23 08:23 Temperature 97.7 F Pulse Rate 97 95 90 Respiratory Rate 18 12 16 Blood Pressure 132/66 Pulse Oximetry 90 Oxygen Delivery Oxygen Flow Rate 07/29/23 08:24 07/29/23 08:37 07/29/23 08:00 Temperature 98.1 F Pulse Rate 105 H 93 Respiratory Rate 16 14 Blood Pressure 139/67 Pulse Oximetry 93 96 Oxygen Deliver
--- NOTE | 2023-07-29 15:40 | PM.IMPN ---
Progress Note: A&P Assessment and Plan (1) Closed intertrochanteric fracture of right femur: Qualifiers: Encounter type: initial encounter Fracture alignment: nondisplaced Qualified Code(s): S72.144A - Nondisplaced intertrochanteric fracture of right femur, initial encounter for closed fracture Code(s): S72.141A - Displaced intertrochanteric fracture of right femur, initial encounter for closed fracture Status: Acute Assessment and Plan: Patient has right intertrochanteric fracture diagnosed on x-rays Right hip ORIF postop day 1 Oral and IV pain meds p.r.n. as needed DVT prophylaxis, PT and OT per Orthopedic team. Plan to discharge home per patient request (2) Diabetes mellitus: Code(s): E11.9 - Type 2 diabetes mellitus without complications Status: Acute Assessment and Plan: Insulin Lispro sliding scale, Accu-checks qAc and HS and Hold oral hypoglycemics Initiate hypoglycemic precautions (3) Nicotine dependence, cigarettes, uncomplicated: Code(s): F17.210 - Nicotine dependence, cigarettes, uncomplicated Status: Acute Assessment and Plan: Nicotine patch p.r.n. (4) Peripheral neuropathy: Code(s): G62.9 - Polyneuropathy, unspecified Status: Acute Assessment and Plan: continue gabapentin Subjective Date/time seen: 07/29/23 15:40 Interval history: Patient states that she is not interested in home health or rehab. She would like to be discharged home. It was explained to patient that her best chances of healing and recovering fully would be to go to rehab and she understood this. She is adamant about being discharged home. I suspect that after she works with therapy once more tomorrow she will be able to discharge home. Her pain is well controlled and she has no complaints at this time. Exam Narrative: GENERAL: Comfortable, no acute distress HENMT: moist mucous membranes EYES: EOM intact b/l NECK: no lymphadenopathy RESPIRATORY: clear to auscultation CARDIO: RRR GI: soft, nontender, bowel sounds present SKIN: no rashes EXTREMITIES: no edema, redness or tenderness; pain with right hip movement Objective Data Vital Signs Vital Signs: Vital Signs - 24 hr 07/28/23 16:20 07/28/23 16:35 07/28/23 15:50 Temperature Pulse Rate 85 88 86 Respiratory Rate 16 18 18 Blood Pressure 165/75 H 168/76 H 185/72 H Pulse Oximetry 99 98 100 Oxygen Delivery Nasal Cannula Nasal Cannula Simple Face Mask Oxygen Flow Rate 2 2 6 07/28/23 16:05 07/28/23 16:00 07/28/23 17:27 Temperature 96.7 F L 96.7 F L Pulse Rate 89 98 94 Respiratory Rate 18 18 18 Blood Pressure 181/77 H 162/74 H 151/76 H Pulse Oximetry 100 98 98 Oxygen Delivery Simple Face Mask Oxygen Flow Rate 6 07/28/23 18:27 07/28/23 20:22 07/28/23 20:23 Temperature 96.7 F L Pulse Rate 102 H 96 96 Respiratory Rate 18 18 18 Blood Pressure 148/68 H Pulse Oximetry 98 94 Oxygen Delivery Room Air Oxygen Flow Rate 07/28/23 20:31 07/28/23 20:00 07/28/23 20:00 Temperature 97.7 F Pulse Rate 92 100 Respiratory Rate 18 16 Blood Pressure 134/76 Pulse Oximetry 94 94 Oxygen Delivery Room Air Oxygen Flow Rate 07/28/23 21:06 07/28/23 23:45 07/29/23 02:02 Temperature 97.7 F 97.7 F 97.7 F Pulse Rate 100 100 100 Respiratory Rate 16 12 12 Blood Pressure 134/76 138/71 130/71 Pulse Oximetry 94 93 93 Oxygen Delivery Oxygen Flow Rate 07/29/23 02:45 07/29/23 02:54 07/29/23 05:16 Temperature 97.7 F Pulse Rate 85 97 95 Respiratory Rate 18 18 12 Blood Pressure 132/66 Pulse Oximetry 90 Oxygen Delivery Oxygen Flow Rate 07/29/23 08:23 07/29/23 08:24 07/29/23 08:37 Temperature Pulse Rate 90 105 H Respiratory Rate 16 16 Blood Pressure Pulse Oximetry 93 Oxygen Delivery Room Air Oxygen Flow Rate 07/29/23 08:00 07/29/23 09:26 07/29/23 08:00 Temperature 98.1 F Pulse Rate 93 Re
[2023-07-29 17:46] LABS: Glucose Point of Care 98 mg/dl (65-105)
[2023-07-29 21:18] LABS: Glucose Point of Care 95 mg/dl (65-105)
[2023-07-30] MEDS: ACETAMINOPHEN 500 MG TABLET 1000 MG PO ×3 (00:32→11:35)
[2023-07-30] MEDS: MORPHINE SULFATE (*CRX) 2 MG/ML INJ IV PUSH (00:36)
[2023-07-30] MEDS: IPRATROPIUM BR 0.02% INH SOLN 0.5 MG/2.5 ML VIAL INHALATION ×3 (02:27→14:03)
[2023-07-30] MEDS: ALBUTEROL SULFATE NEB 2.5 MG/3 ML INH INHALATION ×3 (02:27→14:03)
[2023-07-30 02:28] VITALS: PULSE 87; RESP 18
[2023-07-30 02:40] VITALS: PULSE 88; RESP 18
[2023-07-30] MEDS: oxyCODONE HCL (*CRX) 5 MG TAB IR 10 MG PO (03:03)
[2023-07-30 06:13] LABS: Hematocrit 31.7 % (37.0-47.0); Hemoglobin 10.1 g/dL (12.0-15.0); Mean Corpuscular HGB Conc 31.9 g/dl (32-36); Mean Corpuscular Hemoglobin 31.2 pg (26-34); Mean Corpuscular Volume 97.8 fl (80-100); Mean Platelet Volume 10.9 fl (7.4-10.4); Platelet Count Result 284 k/mm3 (150-375); Red Blood Count 3.24 M/mm3 (4.2-5.4); Red Cell Distribution Width 14.6 % (11.5-14.5); White Blood Count 11.1 K/mm3 (4.5-10.0)
[2023-07-30 06:27] LABS: Anion Gap 3 mmol/L (8-16); Blood Urea Nitrogen 13 mg/dL (7-17); Calcium 8.2 mg/dL (8.4-10.2); Carbon Dioxide 26 mmol/L (22-30); Chloride 109 mmol/L (98-107); Estimated CRCL calculation 71 ml/min; Estimated Glomerular Filt Rate > 60; Glucose 84 mg/dL (65-110); Potassium 3.8 mmol/L (3.4-5.0); Sodium 138 mmol/L (137-145)
[2023-07-30 07:41] LABS: Glucose Point of Care 77 mg/dl (65-105)
[2023-07-30 08:05] VITALS: PULSE 85; RESP 18; O2SAT 94
[2023-07-30 08:17] VITALS: PULSE 95; RESP 18
--- NOTE | 2023-07-30 08:21 | PM.PNORT ---
Progress Note: A&P Assessment and Plan (1) Closed intertrochanteric fracture of right femur: Qualifiers: Encounter type: initial encounter Fracture alignment: nondisplaced Qualified Code(s): S72.144A - Nondisplaced intertrochanteric fracture of right femur, initial encounter for closed fracture Code(s): S72.141A - Displaced intertrochanteric fracture of right femur, initial encounter for closed fracture Status: Acute Assessment and Plan: POD #2 ORIF right hip intertrochanteric fracture with IM Cephalomedullary nail. Pain controlled with medications. She is eager to go home. She has a granddaughter and friend that live with her. Discussed with Dr. Klein who is okay with her going home if she does not want to do a short stay in inpatient rehab. She has had initial PT/OT and is tolerating it well. She will likely need a few days in the hospital to work on strength and PT if she goes home. We discussed the plan. She is agreeable to it. She understands that she will need to come in for staple removal and xrays in 2 weeks. Patient may discharge on 81 mg ASA for 2 weeks for DVT prophylaxis. Ortho instructions: Follow up in office in 2 weeks with xrays and for staple removal. Remove meka at 2 weeks post op in office. Keep Mepilex in place for 1 week. Daily dressing changes with gauze and tape after that. Do not soak in water. Weight bearing as tolerated with walker. DVT prophylaxis: May discharge with 81 mg ASA BID until her next visit. Pain medication: Oxycodone Subjective Subjective Date/Time Seen: 07/30/23 08:21 Interval history: Patient is sitting up in a chair. Notes pain with motion but it is improving. She is eager to get home. No other complaints. Review of Systems Review of Systems: All systems reviewed & are unremarkable except as noted in HPI and below Exam Narrative: Overweight 58 y/o female. Resting comfortably in bed. Wearing compression socks bilaterally. Dressing dry and intact with no drainage. Moderate swelling. No edema. No ecchymosis. No erythema. No hematoma. Range of motion limited due to pain. Calf nontender. Thigh nontender. No varicosities. Distal pulses palpable. Wiggles toes. Objective Data Vital Signs Vital Signs: Vital Signs - 24 hr 07/29/23 08:23 07/29/23 08:24 07/29/23 08:37 Temperature Pulse Rate 90 105 H Respiratory Rate 16 16 Blood Pressure Pulse Oximetry 93 Oxygen Delivery Room Air 07/29/23 09:26 07/29/23 10:27 07/29/23 14:02 Temperature 97.6 F Pulse Rate 95 98 Respiratory Rate 14 18 Blood Pressure 141/73 H Pulse Oximetry 94 Oxygen Delivery Room Air 07/29/23 14:16 07/29/23 12:00 07/29/23 14:27 Temperature 98.1 F 97.6 F Pulse Rate 95 96 100 Respiratory Rate 18 14 14 Blood Pressure 154/81 H 141/73 H Pulse Oximetry 95 94 Oxygen Delivery 07/29/23 16:00 07/29/23 21:02 07/29/23 21:06 Temperature 98.5 F Pulse Rate 100 98 Respiratory Rate 16 18 Blood Pressure 136/69 Pulse Oximetry 90 94 Oxygen Delivery Room Air 07/29/23 21:14 07/29/23 22:55 07/30/23 02:28 Temperature 97.6 F Pulse Rate 99 100 87 Respiratory Rate 18 16 18 Blood Pressure 123/71 Pulse Oximetry 94 Oxygen Delivery 07/30/23 02:40 07/30/23 08:05 07/30/23 08:05 Temperature Pulse Rate 88 85 Respiratory Rate 18 18 Blood Pressure Pulse Oximetry 94 Oxygen Delivery Room Air 07/30/23 08:17 Temperature Pulse Rate 95 Respiratory Rate 18 Blood Pressure Pulse Oximetry Oxygen Delivery Intake/Output Intake/Output: Intake & Output 07/27/23 07/28/23 07/29/23 07/30/23 23:59 23:59 23:59 23:59 Intake Total 9983 815 1501 Output Total 350 2470 Balance 1200 -1510 1130 Meds/Results Medications: Active Medications Generic Name Dose Route Start Last Admin Trade Name Freq PRN Reason Stop Dose Admin Acetaminophen 650 mg 07/26/23 23:29 Acetaminophen 325 Mg Table
[2023-07-30] MEDS: oxyCODONE HCL (*CRX) 5 MG TAB IR PO ×2 (09:11→13:57)
[2023-07-30] MEDS: FAMOTIDINE 20 MG TABLET PO (09:11)
[2023-07-30] MEDS: CYCLOBENZAPRINE HCL 10 MG TABLET PO (09:11)
[2023-07-30] MEDS: SENNA/DOCUSATE SODIUM TABLET 2 TAB PO (09:11)
[2023-07-30] MEDS: ENOXAPARIN 30 MG/0.3 ML SYRINGE SUB-Q (09:12)
[2023-07-30] MEDS: NICOTINE (*PBKC) 21 MG PATCH 1 PATCH TRANSDERM (09:12)
[2023-07-30 11:14] LABS: Glucose Point of Care 85 mg/dl (65-105)
--- NOTE | 2023-07-30 12:09 | PM.DS ---
DS: Admitting Diagnosis Discharge Date 07/30/2023 Admitting Diagnosis Closed intratrochanteric fracture right femur, acute pain of right hip, hip fracture, diabetes mellitus, nicotine dependence cigarettes uncomplicated, tobacco abuse counseling, peripheral neuropathy DS: Discharge Diagnosis Discharge Diagnosis (1) Closed intertrochanteric fracture of right femur: Qualifiers: Encounter type: initial encounter Fracture alignment: nondisplaced Qualified Code(s): S72.144A - Nondisplaced intertrochanteric fracture of right femur, initial encounter for closed fracture Code(s): S72.141A - Displaced intertrochanteric fracture of right femur, initial encounter for closed fracture Status: Acute (2) Diabetes mellitus: Code(s): E11.9 - Type 2 diabetes mellitus without complications Status: Acute (3) Nicotine dependence, cigarettes, uncomplicated: Code(s): F17.210 - Nicotine dependence, cigarettes, uncomplicated Status: Acute (4) Peripheral neuropathy: Code(s): G62.9 - Polyneuropathy, unspecified Status: Acute DS: Summary Hospital Course Reason for hospitalization: Patient was admitted status post fall with right intratrochanteric fracture. Hospital Course: Patient underwent ORIF of the right hip intertrochanteric fracture with IM cephalomedullary nail on 07/28. Patient purchase faded well with therapy. She was constantly telling everybody that she needed to go home right away. Patient refused short-term rehab or SNF. She refused home health rehabilitation because she did not want to be homebound. Patient states that she can get up and ambulate well with a walker and that she is able to ambulate safely. Patient reports that her pain is well enough controlled that she feels okay going home at this time. No postoperative complications. Orthopedics wanted patient to undergo further therapy but was okay with discharge. Patient has follow-up with Orthopedics in 2 weeks and is to take aspirin twice daily for VT prophylaxis. Time spent discussing smoking cessation with patient: 3 to 10 minutes Status at Discharge Cognitive/behavioral status at discharge: Awake alert oriented and pleasant Functional status at discharge: uses cane/walker Overall status at discharge: patient is progressing back to baseline Time Spent with Patient Time attestation: Total time spent providing and/or coordinating discharge services: 35 minutes Time spent: Greater than 30 minutes Exam Narrative: GENERAL: Comfortable, no acute distress HENMT: moist mucous membranes EYES: EOM intact b/l NECK: no lymphadenopathy RESPIRATORY: clear to auscultation CARDIO: RRR GI: soft, nontender, bowel sounds present SKIN: no rashes EXTREMITIES: no edema, redness or tenderness; pain with right hip movement DS: Data Data Completed and Pending Labs on day of discharge: Labs from last 24 hours 07/30/23 07/30/23 07/30/23 11:12 07:34 05:41 WBC 11.1 H RBC 3.24 L Hgb 10.1 L Hct 31.7 L MCV 97.8 MCH 31.2 MCHC 31.9 L RDW 14.6 H Plt Count 284 MPV 10.9 H Sodium 138 Potassium 3.8 Chloride 109 H Carbon Dioxide 26 Anion Gap 3 L BUN 13 Creatinine 0.70 Estim Creat Clear Calc 71 Estimated GFR > 60 Glucose 84 POC Capillary Glucose 85 77 Calcium 8.2 L 07/29/23 07/29/23 07/29/23 21:16 17:03 11:58 WBC RBC Hgb Hct MCV MCH MCHC RDW Plt Count MPV Sodium Potassium Chloride Carbon Dioxide Anion Gap BUN Creatinine Estim Creat Clear Calc Estimated GFR Glucose POC Capillary Glucose 95 98 86 Calcium Procedures/Treatments: ORIF right intertrochanteric femur fracture with IM cephalomedullary nail by Dr. Klein Discharge Plan Discharge Attending physician on discharge: Radha James Consulting providers: Juno Klein Dis[facility]ing [facility]
[2023-07-30 14:03] VITALS: PULSE 99; RESP 20
[2023-07-30 14:16] VITALS: PULSE 91; RESP 20
== END 2023-07-30 14:52 | disposition home or self-care (01) | DRG 308 ==
LOC: ANHED 22:54 → ANH3MEDSUR 23:23
PROVIDERS: Internal Medicine Critical Care Medicine; Orthopaedic Surgery; Admitting Provider Family Medicine; Emergency Provider Preventive Medicine Aerospace Medicine; PCP Family Medicine; Visit Provider Nurse Practitioner
PROC: 0QS636Z Reposition Right Upper Femur with Intramedullary Internal Fixation Device, Percutaneous Approach (ICD-10-PCS; CPT 27245; principal; 2023-07-28 15:00)
DX: S72.141A Displaced intertrochanteric fracture of right femur, initial encounter for closed fracture (principal); E11.42 Type 2 diabetes mellitus with diabetic polyneuropathy; W01.0XXA Fall on same level from slipping, tripping and stumbling without subsequent striking against object, initial encounter; E87.6 Hypokalemia; F17.210 Nicotine dependence, cigarettes, uncomplicated
CPT/HCPCS: 36415; 71045; 73552; 80048; 80053; 82948; 83735; 84100; 85025; 85027; 85610; 86850; 86900; 86901; 93005; 94640; 96365; 96375; 97110; 97161; 97166; 97530; 97535; 99199; 99285; A9270; C1713; C1769; J0690; J1170; J1650; J2270; J3010; J3480; J7030; J7040; J7120

== ENCOUNTER 2023-08-08 17:10 | Emergency (ER) | payer OTHER, SELFPAY ==
[2023-08-08 17:12] VITALS: BP 155/83; PULSE 98; RESP 18; TEMP 36.5; O2SAT 98
== END 2023-08-09 01:17 | disposition left against medical advice (07) ==
PROVIDERS: PCP Family Medicine
DX: R22.43 Localized swelling, mass and lump, lower limb, bilateral (principal)
CPT/HCPCS: 99199

== ENCOUNTER 2023-10-14 08:39 | Outpatient (CLI) | payer OTHER, SELFPAY ==
--- NOTE | ~2023-10-14 | XR_ITS ---
Left foot Technique: AP, oblique, and lateral views were obtained. Clinical History: Weakness Findings: No acute fracture or dislocation is seen. Osseous alignment is anatomic. Joint spaces are p reserved without erosive or degenerative change. Soft tissues are unremarkable. Impression: Unremarkable left foot radiographs. Reviewed, dictated and finalized at location . SERVER Impression: Unremarkable left foot radiographs.
--- NOTE | ~2023-10-14 | XR_ITS ---
Left ankle Technique: AP, oblique, and lateral views were obtained. Clinical History: Weakness Findings: No acute fracture or dislocation is seen. Osseous alignment is anatomic. Ankle mortise and other visualized joint spaces are preserved. Soft tissues are otherwise unremarkable. Impression: Unremarkable left ankle. Reviewed, dictated and finalized at location . [employer] Impression: Unremarkable left ankle.
--- NOTE | ~2023-10-14 | XR_ITS ---
AP view of the pelvis and AP and lateral views of the right hip Clinical history: Postoperative COMPARISON: 09/10/2023 Findings: Patient is status post ORIF of the proximal right femur, with underlying intertrochanteric fracture deformity. Osseous and orthopedic hardware alignment is unchanged. No new fracture seen. Jose Raul ateral hip joint spaces are preserved. Soft tissues are unremarkable. Impression: Status post ORIF of proximal right femoral intertrochanteric fracture. Osseous and orthopedic hardwar e alignment is unchanged. Reviewed, dictated and finalized at location M. LE SUPERVISOR Impression: Status post ORIF of proximal right femoral intertrochanteric fracture. Osseous and orthopedic hardware alignment is unchanged.
== END 2023-10-14 08:40 | disposition home or self-care (01) ==
PROVIDERS: PCP Family Medicine; Referring Provider Nurse Practitioner Family; Visit Provider Orthopaedic Surgery
DX: M62.81 Muscle weakness (generalized) (principal)
CPT/HCPCS: 73502; 73610; 73630

== ENCOUNTER 2023-11-28 10:02 | Outpatient (CLI) | payer OTHER, SELFPAY ==
--- NOTE | ~2023-11-28 | US_ITS ---
EXAMINATION: US venous doppler [facility] DATE: 11/28/2023 10:56 INDICATION: Lower limb localized edema. TECHNIQUE: Grayscale ultrasound images without and with compression and Doppler ultrasound images of the bilateral lower extremity veins were obtained. COMPARISON: Ultrasound 05/05/2017 FINDINGS: The visualized portions of right common femoral vein, profunda (deep) femoral vein, femoral vein, pop liteal vein, peroneal veins, posterior tibial veins, and greater saphenous vein outflow are patent. The visualized portions of left common femoral vein, profunda femoral vein, femoral vein, popliteal v ein, peroneal veins, posterior tibial veins, and greater saphenous vein outflow are patent. IMPRESSION: 1. No deep venous thrombosis. Reviewed, dictated and finalized at location A. ORY HAND
== END 2023-11-28 10:03 | disposition home or self-care (01) ==
PROVIDERS: PCP Family Medicine; Visit Provider Physician Assistant Surgical
DX: R60.0 Localized edema (principal); Z98.890 Other specified postprocedural states; Z87.81 Personal history of (healed) traumatic fracture; M79.662 Pain in left lower leg; M79.661 Pain in right lower leg
CPT/HCPCS: 93970

== ENCOUNTER 2025-04-12 14:05 | Outpatient (CLI) | payer OTHER, SELFPAY ==
[2025-04-12 14:29] LABS: Basophils Absolute Auto 0.1 K/mm3 (0.0-0.1); Basophils Percent Auto 0.8 % (0.2-1.2); Eosinophils Absolute Auto 0.2 K/mm3 (0-0.3); Eosinophils Percent Auto 1.9 % (0-4.4); Hematocrit 36.6 % (37.0-47.0); Immature Granulocyte Absolute 0.04 K/mm3 (0.00-0.031); Immature Granulocyte Percent A 0.4 % (0-0.5); Immature Platelet Fraction Pct 6.8 % (0.9-11.2); Lymphocytes Absolute Auto 1.75 K/mm3 (0.9-3.2); Lymphocytes Percent Auto 16.2 % (18.3-44.2); Mean Corpuscular HGB Conc 30.1 g/dl (32-36); Mean Corpuscular Hemoglobin 33.1 pg (26-34); Mean Corpuscular Volume 110.2 fl (80-100); Mean Platelet Volume 10.8 fl (7.4-10.4); Monocytes Absolute Auto 0.6 K/mm3 (0.1-0.6); Monocytes Percent Auto 5.4 % (2.6-8.5); Neutrophils Absolute Auto 8.1 K/mm3 (1.3-6.7); Neutrophils Percent Auto 75.3 % (45.5-73.1); Platelet Count Result 247 k/mm3 (150-375); Red Blood Count 3.32 M/mm3 (4.2-5.4); Red Cell Distribution Width 16.3 % (11.5-14.5); White Blood Count 10.8 K/mm3 (4.5-10.0)
--- OUTSIDE RECORDS SUMMARY | 2025-04-12 14:54 | XMS_ITS | Clinical Summary ---
Author Organization [facility] Address [address] [place] [address] Phone Care Team Providers Care Medical Staff Services Coordinator Name Role Phone Unavailable Primary Care Provider Unavailabl e Allergies Active Allergy Reactions Criticality Noted Date Comments Baclofen Hallucination,Other (See Comments) Medium 01/02/2021 Hallucinations Medications albuterol sulfate HFA 90 mcg/actuation aerosol inhaler Take 2 Puffs by inhalation every 4 hours as needed. Active alendronate (FOSAMAX) 70 mg tablet Take 70 mg by mouth every 7 days. Active aspirin (ECOTRIN EC) 81 mg Tablet, Delayed Release (E.C.) Take 81 mg by mouth daily. Active calcium CARBONATE + vitamin D (CALTRATE+D) 600 mg-10 mcg (400 unit) Tablet Take 1 Tablet by mouth daily. Active cholecalciferol , vitamin D3, 1,000 unit Take 1,000 Units by mouth daily. 5 Active diclofenac sodium (VOLTAREN) 75 mg Tablet, Delayed Release (E.C.) Take 75 mg by mouth 2 times daily. Active DULoxetine (CYMBALTA) 60 mg Capsule, Delayed Release(E.C.) Take 60 mg by mouth daily. Active famotidine (PEPCID) 20 mg tablet Take 20 mg by mouth 2 times daily. Active famotidine (PEPCID) 40 mg tablet Take 40 mg by mouth daily with supper. 5 Active fluticasone propionate (FLONASE) 50 mcg/spray [place], Suspension nasal inhaler SHAKE LIQUID AND USE 2 SPRAYS IN EACH NOSTRIL EVERY DAY Active furosemide (LASIX) 20 mg tablet Take 20 mg by mouth daily. Active gabapentin (NEURONTIN) 300 mg capsule Take 300 mg by mouth daily. Active gabapentin (NEURONTIN) 800 mg tablet Take 800 mg by mouth 2 times daily. 5 Active HYDROcodone-louann taminophen (NORCO) 5-325 mg tablet TAKE 1 TO 2 TABLETS BY MOUTH EVERY 4 TO 6 HOURS NEEDED FOR SEVERE PAIN. MAX 6 TABLETS DAILY Active methocarbamoL (ROBAXIN) 750 mg tablet Take 1 tab by mouth 3 times a day as needed for muscle spasms 5 Active metoprolol succinate (TOPROL XL) 50 mg Extended Release 24 hour tablet Take 50 mg by mouth daily. Active montelukast (SINGULAIR) 10 mg tablet Take 10 mg by mouth daily. 3 Active naloxone (NARCAN) 4 mg/spray [place], Non-Aerosol CALL 911. SPR CONTENTS OF ONE SPRAYER (0.1ML) INTO ONE NOSTRIL. REPEAT IN 2-3 MIN IF SYMPTOMS OF OPIOID EMERGENCY PERSIST, ALTERNATE NOSTRILS 5 Active topiramate (TOPAMAX) 50 mg tablet Take 50 mg by mouth 2 times daily. 5 Active sennosides (Senna) 8.6 mg tablet Take 8.6 mg by mouth 2 times daily. 5 Active Active Problems No known active problems Encounters Date Type Department Care Team Description 04/12/2025 1:30 PM CDT Office Visit [facility] Oncology and Hematology - [place] [address] [address] Luis Osman MD Chronic anemia (Primary Dx) from Last 3 Months Family History Medical History Relation Name Comments No Known Problems Brother 1 No Known Problems Brother 2 No Known Problems Brother 3 No Known Problems Child Diabetes Father Heart Disease Father Diabetes Mother Heart Disease Mother No Known Problems Sister 1 No Known Problems Sister 2 No Known Problems Sister 3 No Known Problems Sister 4 No Known Problems Sister 5 Relation Name Status Comments Brother 1 Alive Brother 2 Alive Brother 3 Child Alive Father Mother Sister 1 Alive Sister 2 Alive Sister 3 Alive Sister 4 Alive Sister 5 Social History Tobacco Use Types Packs/Day Years Used Date Smoking Tobacco: Every Day Cigarettes 1 50.5 Started: 10/27/1974 Smokeless Tobacco: Never Alcohol Use Standard Drinks/Week Comments Never 0 (1 standard drink = 0.6 oz pur e alcohol) Comments Unknown Sex and Gender Information Value Date Recorded Sex Assigned at Not on file 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 Gender Identity Not on file Sexual Orientation Not on file Last Filed Vital Signs Vital Sign Reading Time Taken Comments Blood Pressure 125/71 04/12/2025 1:39 PM CDT Pulse 79 04/12/2025 1:39 PM CDT Temperature 37.2 C (98.9 F) 04/12/2025 1:39 PM CDT Respiratory Rate 15 04/12/2025 1:39 PM CDT Oxygen Saturation 92% 04/12/2025 1:39 PM CDT Inhaled Oxygen Concentration - - Weight 65.3 kg (144 lb) 04/12/2025 1:39 PM CDT Height 170.2 cm (5' 7) 04/12/2025 1:39 PM CDT Body Mass Index 22.55 04/12/2025 1:39 PM CDT Plan of Treatment Upcoming Encounters Date Type Department Care Team (Late st Contact Info) Description 04/26/2025 4:30 PM CDT Telephone Check Up [facility] Oncology and Hematology - [place] [address] [facility] [address] [place] [address] Luis Osman MD [address] [facility] [address] [place] [address] Health Maintenance Due Date Last Done Comments Preventative Visit-Managed Medicaid 02/01/1984 HPV/Cotest (21-29) 1986 CERVICAL CANCER SCREENING 1995 HPV/Cotest (30-65) 1995 PAP SMEAR 1995 BREAST CANCER SCREENING 2005 COLORECTAL SCREENING 2010 Colorectal Cancer Screening 2010 FIT-DNA Q 3 years 2010 FIT/FOBT Q 1 year 2010 Flex Sig/CT Colonography Q 5 years 2010 ZOSTER VACCINE (1 of 2) 2015 INFLUENZA VACCINE (#1) 2024 , 10/22/2022, 08/01/2021, Additional history exists COVID-19 Vaccine ( season) 2024 01/23/2022, 02/02/2021, 01/05/2021 DTAP/TDAP/TD VACCINES (2 - Td or Tdap) 06/30/2024 06/30/2014 RSV VACCINE (60+ or ) (1 - 1-dose 75+ series) 02/01/2040 HEPATITIS B VACCINES Aged Out No long er eligible based on patient's age to complete this topic Insurance MEDICAID [place]
--- OUTSIDE RECORDS SUMMARY | 2025-04-12 14:54 | XMS_ITS | CONTINUITY OF CARE DOCUMENT ---
Author Name alina fuller Address Unknown Organization 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
--- OUTSIDE RECORDS SUMMARY | 2025-04-12 14:54 | XMS_ITS | Encounter Summary ---
Author Organization [facility] Alberto [facility] Address [address] [place] [address] Care Team Providers Care Inspector Aligning Name Role Phone Unavailable Primary Care Provider Unavailabl e Reason for Visit * Reason Comments Establish Care Encounter Details Date Type Department Care Team (Late st Contact Info) Description 04/12/2025 1:30 PM CDT Office Visit [facility] Oncology and Hematology - [place] [address] [facility] [address] [place] [address] Luis Osman MD [address] [facility] [address] [place] [address] Chronic anemia (Primary Dx) Social History Tobacco Use Types Packs/Day Years Used Date Smoking Tobacco: Every Day Cigarettes 1 50.5 Started: 10/27/1974 Smokeless Tobacco: Never Alcohol Use Standard Drinks/Week Comments Never 0 (1 standard drink = 0.6 oz pur e alcohol) Comments Unknown Sex and Gender Information Value Date Recorded Sex Assigned at Not on file 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 Problem list There is no problem list on file for this patient. Previous TREATMENT ? Measurable Disease ? Reason for Visit Jaylyn Naranjo is a 60 y.o. female who was referred for consultation for chronic anemia. History of present illness This is a pleasant 60-year-old female with history of morbid obesity status post gastric bypass surgery in 1999 with more than 350 pound weight loss. She has a history of peripheral neuropathy, hypertension and GERD. He has been complaining of tiredness and fatigue. Denies any bleeding including melena hematochezia. She does have some easy bruising. She denies being a vegetarian but rarely eats red meat. She had colonoscopy and EGD done 2 years ago and came back unremarkable according to the patient description. Patient had labs done in October 2024 that showed hemoglobin of 11.8. Labs from February 2023 showed ferritin of only 8. She is intolerant to oral iron due to nausea vomiting.She is not taking any multivitamin as well. Denies any other complaints. Past Medical History Past Medical History: Diagnosis Date Depression Hx of blood clots Hx of gastric ulcer Hypertension Surgical History Past Surgical History: Procedure Laterality Date HX CHOLECYSTECTOMY HX GASTRIC BYPASS HX SURGICAL OTHER Bowel Obstruction 2004 HX TUMOR REMOVAL 2001 Medications Current Outpatient Medications Medication Sig Dispense Refill cholecalciferol, vitamin D3, 1,000 unit Take 1,000 Units by mouth daily. famotidine (PEPCID) 40 mg tablet Take 40 mg by mouth daily with supper. gabapentin (NEURONTIN) 800 mg tablet Take 800 mg by mouth 2 times daily. methocarbamoL (ROBAXIN) 750 mg tablet Take 1 tab by mouth 3 times a day as needed for muscle spasms montelukast (SINGULAIR) 10 mg tablet Take 10 mg by mouth daily. naloxone (NARCAN) 4 mg/spray [place], Non-Aerosol CALL 911. SPR CONTENTS OF ONE SPRAYER (0.1ML) INTO ONE NOSTRIL. REPEAT IN 2-3 MIN IF SYMPTOMS OF OPIOID EMERGENCY PERSIST, ALTERNATE NOSTRILS topiramate (TOPAMAX) 50 mg tablet Take 50 mg by mouth 2 times daily. sennosides (Senna) 8.6 mg tablet Take 8.6 mg by mouth 2 times daily. albuterol sulfate HFA 90 mcg/actuation aerosol inhaler Take 2 Puffs by inhalation every 4 hours as needed. alendronate (FOSAMAX) 70 mg tablet Take 70 mg by mouth every 7 days. aspirin (ECOTRIN EC) 81 mg Tablet, Delayed Release (E.C.) Take 81 mg by mouth daily. calcium CARBONATE + vitamin D (CALTRATE+D) 600 mg-10 mcg (400 unit) Tablet Take 1 Tablet by mouth daily. diclofenac sodium (VOLTAREN) 75 mg Tablet, Delayed Release (E.C.) Take 75 mg by mouth 2 times daily. DULoxetine (CYMBALTA) 60 mg Capsule, Delayed Release(E.C.) Take 60 mg by mouth daily. famotidine (PEPCID) 20 mg tablet Take 20 mg by mouth 2 times daily. fluticasone propionate (FLONASE) 50 mcg/spray [place], Suspension nasal inhaler SHAKE LIQUID AND USE 2 SPRAYS IN EACH NOSTRIL EVERY DAY furosemide (LASIX) 20 mg tablet Take 20 mg by mouth daily. gabapentin (NEURONTIN) 300 mg capsule Take 300 mg by mouth daily. HYDROcodone-acetaminophen (NORCO) 5-325 mg tablet TAKE 1 TO 2 TABLETS BY MOUTH EVERY 4 TO 6 HOURS NEEDED FOR SEVERE PAIN. MAX 6 TABLETS DAILY metoprolol succinate (TOPROL XL) 50 mg Extended Release 24 hour tablet Take 50 mg by mouth daily. No current facility-administered medications for this visit. Allergies Allergies Allergen Reactions Baclofen Hallucination and Other (See Comments) Hallucinations Immunizations: Immunization History Administered Date(s) Administered (PFIZER MATTHEW)(12 YR UP PRIMARY SERIES) COVID-19 VACCINE - EMERGENCY USE AUTHORIZATION, MRNA, MATTHEW(PF) 30 MCG/0.3 ML IM SUSP 01/23/2022 (SPIKEVAX) (12 YRS UP PRIMARY SERIES) COVID-19 VACCINE - MRNA-1273(PF) 100 MCG/0.5 ML IM SUSP 01/05/2021, 02/02/2021 Family History Family History Problem Relation Name Age of Onset Heart Disease Father Diabetes Father Heart Disease Mother Diabetes Mother No Known Problems Sister No Known Problems Sister No Known Problems Sister No Known Problems Sister No Known Problems Sister No Known Problems Brother No Known Problems Brother No Known Problems Brother No Known Problems Child Social History Social History Tobacco Use Smoking status: Every Day Current packs/day: 1.00 Average packs/day: 1 pack/day for 50.5 years (50.5 ttl pk-yrs) Types: Cigarettes Start date: 10/27/1974 Smokeless tobacco: Never Substance Use Topics Alcohol use: Never Review of Systems Constitutional: Patient did not mention fever; no night sweats; no anorexia; no weight loss; complain of tiredness and fatigue NEENT: Patient did not mention headache; no change in vision; no change in hearing; no sore throat;no dysphagia Respiratory: Patient did not mention shortness of breath; no pleuritic chest pain; no cough; no hemoptysis Cardiac: Patient did not mention cardiac-like chest pain; no palpitations; no orthopnea; no PND; noDOE Breasts: Patient did not mention tenderness; no masses GI: Patient did not mention abdominal pain; no nausea; no vomiting; no diarrhea; no hematochezia; no melena : Patient did not mention dysuria; no frequency; no hesitancy; no hematuria CASHIER OFFICE: Musculosketetal: Patient did not mention bone pain; no arthralgia; no joint swelling; no myalgia; Skin: Patient did not mention pruritis; no rash; no petechiae; no ecchymoses Endocrine: Patient did not mention polydipsia; no polyuria; no unusual weight gain Neuro: Patient did not mention headache; no change in vision; no sensory changes; no muscle weakness; no confusion; no seizures Psych: Patient did not mention anxiety; no depression; Physical Exam Vitals: As per nursing note Constitutional: Well developed, well nourished, no acute distress, non-toxic appearance Teeth and gum. No signs of infection or swelling. Eyes: PERRL, conjunctiva normal HEENT: Atraumatic, external ears normal, nose normal, oropharynx moist, no pharyngeal exudates. no sinus tenderness Neck- normal range of motion, no tenderness, supple Respiratory: No respiratory distress, normal breath sounds, no rales, no wheezing Cardiovascular: Normal rate, normal rhythm, no murmurs, no gallops, no rubs GI: Soft, nondistended, normal bowel sounds, nontender, no splenomegaly, no hepatomegaly, no mass, no rebound, no guarding : No costovertebral angle tenderness Musculoskeletal: No edema, no tenderness, no deformities. Back- no tenderness Integument: Well hydrated, no rash, Digits and nails inspection normal Lymphatic: No lymphadenopathy noted Neurologic: Alert & oriented x 3, CN 2-12 normal, normal motor function, normal sensory function, no focal deficits noted Psychiatric: Speech and behavior appropriate ? labs No results found for this or any previous visit (from the past 24 hours). Labs from October 2024 showed hemoglobin 11.8. Labs from February 2023 showed ferritin of 8 Pathology ? Imaging & Other Studies Performance Status? Assessment / Plan: ? Iron deficiency anemia. Patient is a 60-year-old morbidly obese female who had gastric bypass surgery in 1999 with almost 350 pound weight loss. Patient has a history of gastroesophageal reflux disease, hypertension and generalized peripheral neuropathy. She has been complaining of tiredness and fatigue but denies any bleeding including melena hematochezia. She does have some easy bruising. She denies being a vegetarian. She is intolerant to oral iron and multivitamin due to nausea vomiting. According to her colonoscopy and EGD done 2 years ago was unremarkable. Her iron deficiency is due to malnutrition malabsorption. I will order the comprehensive workup for anemia. I will checkCBC, CMP, iron profile, B12 level, soluble transferrin receptor and methylmalonic acid level. We will start her on on iron infusion and may need B12 injection based on the labs. I will call her next week to discuss findings and further recommendations. I have answered all the questions to patient sa tisfaction. Peripheral neuropathy. Patient is on gabapentin. Osteopenia. Patient is on Fosamax. GERD. She is on Pepcid. Thank you very much for allowing me to participate in Jaylyn Naranjo's evaluation and management. Please feel free to contact if I can be of any further assistance in your patient???s care requiring hematology or oncology evaluation. Sincerely, ? ? Luis Osman M.D. cell TOBACCO COUNSELING She was counseled to discontinue tobacco/nicotine use. Luis Osman MD ,04/12/2025 2:09 PM ? Total time spent 60 minutes, two third of the total time spent counseling patient [id number]. CC:?MAURICE Nettles documented in this encounter Plan of Treatment Upcoming Encounters Date Type Department Care Team (Late st Contact Info) Description 04/26/2025 4:30 PM CDT Telephone Check Up [facility] Oncology and Hematology - [place] [address] [facility] [address] [place] [id number] Luis Osman MD [address] [place] [address] Scheduled Orders Name Type Priority Associated Diagnoses Orde r Schedule CBC WITH DIFFERENTIAL Lab Stat Chronic anemia Expected: 04/12/2025, Expires: 04/12/2026 COMPREHENSIVE METABOLIC PANEL Lab Stat Chronic anemia Expected: 04/12/2025, Expires: 04/12/2026 FERRITIN Lab Routine Chronic anemia Expected: 04/12/2025, Expires: 04/12/2026 IRON, TIBC, AND PERCENT SATURATION Lab Routine Chronic anemia Expected: 04/12/2025, Expires: 04/12/2026 LACTATE DEHYDROGENASE Lab Routine Chronic anemia Expected: 04/12/2025, Expires: 04/12/2026 METHYLMALONIC ACID Lab Routine Chronic anemia Expected: 04/12/2025, Expires: 04/12/2026 TRANSFERRIN RECEPTOR TFR SOLUBLE Lab Routine Chronic anemia Expected: 04/12/2025, Expires: 04/12/2026 VITAMIN B12 AND FOLATE Lab Routine Chronic anemia Expected: 04/12/2025, Expires: 04/12/2026 documented as of this encounter Visit Diagnoses Diagnosis Chronic anemia- Primary Anemia, unspecified documented in this encounter
--- OUTSIDE RECORDS SUMMARY | 2025-04-12 14:54 | XMS_ITS | Clinical Summary ---
Author Organization [facility] Address [address] [place] [address] Care Team Providers Care Printing Shop Supervisor Name Role Phone Bety Queen Primary Care Provider [phone] Source Comments [facility],non-owned Affiliates and Associated Physician Practices is amultiple site organization consisting of ambulatory clinics and hospital sitesin [place], [place], [place] and [place]. This disclosure is being madepursuant to the Care Everywhere program and may not contain all information available regarding this patient. Last updated 18.[facility] Allergies Active Allergy Reactions Criticality Noted Date Comments Baclofen Other 11/04/2024 Hallucinations Medications * Be aware that medications may not be up to date on this document. Alwaysverify current medications with the patient. topiramate (Topamax) 50 MG tablet Take 1 (one) tablet by mouth 2 times daily Active omeprazole (PriLOSEC) 40 MG capsule Take 1 (one) capsule by mouth daily before breakfast Active metoprolol succinate XL 24hr (Toprol XL) 50 MG tablet Take 1 (one) tablet by mouth once daily Active DULoxetine (Cymbalta) 60 MG capsule Take 1 (one) capsule by mouth once daily Active acetaminophen (Tylenol) 325 MG tablet Take 1 (one) tablet by mouth every 6 hours as needed for Fever or Pain Maximum allowable Acetaminophen amount = 4 Grams (4000 mg) / 24 hours. 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 5 Active sennosides (Senokot) 8.6 MG tablet Take 2 (two) tablets by mouth once daily 60 tablet 1 11/11/2024 3:53 PM M[employer] FILTER [employer] CHANGER 5 Active methocarbamol (Robaxin) 750 MG tablet Take 1 (one) tablet by mouth 3 times daily 30 tablet 2 11/11/2024 3:53 PM MASH FILTER [employer] CHANGER 5 Active vitamin D3 (Cholecalcifer ol) 25 MCG (1000 UNITS) tablet Take 1 (one) tablet by mouth once daily 30 tablet 1 11/11/2024 3:53 PM MASH FILTER [employer]OTH CHANGER 5 Active gabapentin (Neurontin) 800 MG tablet Take 1 (one) tablet by mouth 3 times daily 30 tablet 2 11/11/2024 3:53 PM M[employer] FILTER [employer] CHANGER 5 Active gabapentin (Neurontin) 100 MG capsule Take 2 (two) capsules by mouth 3 times daily 60 capsule 2 11/11/2024 3:53 PM MASH FILTER [employer] CHANGER 5 Active naloxone HCl (Narcan) 4 MG/0.1ML nasal spray [place] 1 (one) spray into the nose as needed 2 Each 11/11/2024 3:53 PM MASH FILTER CLOTH CHANGER 5 Active HYDROcodone-ac etaminophen ([place]) 10-325 MG tabletIndicati ons:Pubic ramus fracture, left, closed, initial encounter ([facility]),Other fracture of sacrum, initial encounter for closed fracture ([facility]) Take 1 (one) tablet by mouth every 6 hours as needed 64 tablet 5 Active Additional Information Patient not taking.Reported on 11/30/2024 Active Problems Problem Noted Date Diagnosed Date T2DM (type 2 diabetes mellitus) 11/05/2024 Age related osteoporosis, un specified pathological fracture presence 11/04/2024 Bilateral hip pain 11/04/2024 Closed nondisplaced fracture of acetabulum, unspecified portion of acetabulum, unspecified laterality, initial encounter 11/04/2024 Social History Tobacco Use Types Packs/Day Years Used Date Smoking Tobacco: Every Day Cigarettes 1 6.5 Started: 2018 Smokeless Tobacco: Never Tobacco Cessation:Ready to Q uit: No; Counseling Given: No Alcohol Use Standard Drinks/Week Comments Never 0 (1 standard drink = 0.6 oz pur e alcohol) occ AUDIT-C Answer Date Recorded Q1: How often do you have a drink containing alcohol? Never 11/04/2024 Q2: How many drinks containi ng alcohol do you have on a typical day when you are drinking? Patient does not drink Q3: How often do you have si x or more drinks on one occasion? Never 11/04/2024 Overall Financial Resource Strain (CARDIA) Answe r Date Recorded How hard is it for you to pa y for the very basics like food, housing, medical care, and heating? Not hard at all 11/04/2024 PHQ-2 Answer Date Recorded Patient Health Questionnaire-2 Score 0 11/30/2024 [facility] - Occupational Stress Questionnaire Answer Date Recorded Do you feel stress - tense, restless, nervous, or anxious, or unable to sleep at night because your mind is troubled all the time - these days? Not at all 11/04/2024 Hunger Vital Sign Answer Date Recorded Within the past 12 months, y ou worried that your food would run out before you got the money to buy more. Never true 11/04/19 25 Within the past 12 months, t he food you bought just didn't last and you didn't have money to get more. Never true 11/04/2024 PRAPARE - Transportation Answer Date Re corded In the past 12 months, has l ack of transportation kept you from medical appointments or from getting medications? No 06/2025 In the past 12 months, has l ack of transportation kept you from meetings, work, or from getting things needed for daily living? No 11/04/2024 Housing Stability Vital Sign Answer John e Recorded In the last 12 months, was t here a time when you were not able to pay the mortgage or rent on time? No 11/04/2024 In the past 12 months, how m any times have you moved where you were living? 1 11/04/2024 At any time in the past 12 m [facility], were you homeless or living in a jail (including now)? 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 Gender Identity Not on file Sexual Orientation Not on file Last Filed Vital Signs Vital Sign Reading Time Taken Comments Blood Pressure 142/73 11/15/2024 9:14 AM M[employer]TER [employer] CHANGER Pulse 74 11/15/2024 9:14 AM M[employer] FILTER [employer] CHANGER Temperature 36.1 C (97 F) 11/15/2024 9:14 AM [employer] CH[employer]ER Respiratory Rate 18 11/15/2024 9:14 AM M[employer]TER [employer] CHANGER Oxygen Saturation 96% 11/15/2024 9:14 AM M[employer] FILTER [employer] CHANGER Inhaled Oxygen Concentration - - Weight 70.3 kg (155 lb) 11/30/2024 12:09 PM MASH FILTER [employer]OTH CHANGER Height 170.2 cm (5' 7) 11/30/2024 12:09 PM M[employer] FILTER [employer] CHANGER Body Mass Index 24.28 11/30/2024 12:09 PM MASH FILTER [employer] CHANGER Plan of Treatment Health Maintenance Due Date Last Done Comments COLOGUARD (AGES 45-75) - COLON CA SCREENING 1965 COLON MONITORING 1965 COLONOSCOPY - COLON CA SCREENING 1965 CT COLONOGRAPHY - COLON CA SCREENING 1965 Colorectal Cancer Screening 1965 FIT - COLON CA SCREENING 1965 FLEX SIG - COLON CA SCREENING 1965 MAMMOGRAM 1965 HIV SCREENING 02/01/1980 HEPATITIS C SCREENING 01/27/1983 DTAP/TDAP/TD VACCINES (1 - Tdap) 02/01/1984 PNEUMOCOCCAL VACCINE 50+ (1 of 2 - PCV) 02/01/1984 PAP SMEAR 1986 PAP with HPV 1995 DIABETES-STATIN 2005 ZOSTER VACCINE (1 of 2) 2015 COVID-19 VACCINE ( season) 2024 01/23/2022, 02/02/2021, 01/05/2021 DIABETES - URINE PROTEIN SCREENING 10/27/2024 DIABETES RETINOPATHY SCREENING 11/05/2024 DIABETES-FOOT EXAM WITH MONOFILAMENT 11/05/2024 Respiratory Syncytial Virus (RSV) Vaccine Pt: or over 60 yrs (1 - Risk 60-74 years 1-dose series) 2025 DIABETES-HGB A1C 05/05/2025 11/05/2024 INFLUENZA VACCINE (Season Ended) 2025 08/21/2023, 10/22/2022, 08/01/2021, Additional history exists DIABETES-SERUM CREATININE 11/11/20252024, 11/10/2024, 11/09/2024, Additional history exists DEPRESSION SCREENING Completed 11/30/2024 HEPATITIS B VACCINE Aged Out No longe r eligible based on patient's age to complete this topic HIB VACCINE Aged Out No longer eligi ble based on patient's age to complete this topic HPV VACCINE Aged Out No longer eligi ble based on patient's age to complete this topic MENINGOCOCCAL (Group B) VACCINE SHARED DECISION-MAKING Aged Out No longer eligible based on patient's age to complete this topic MENINGOCOCCAL GROUPS A/C/Y/W VACCINE Aged Out No longer eligible based on patient's age to complete this topic Procedures Procedure Name Priority Date/Time Associated Diagnosis Comments RENAL FUNCTION PANEL AM Draw 11/11/2024 1:28 AM M[employer]TER [employer] CH[employer]ER HEMOGLOBIN A1C Routine 11/05/2024 12:40 AM MASH FILTER [employer]OTH CHANGER from Last 3 Months or Most Recently Relevant to Health Maintenance Results * (ABNORMAL) RENAL FUNCTION PANEL (11/11/2024 1:28 AM M[employer] FILTER [employer]OTH CHANGER) BUN 16 7 - 26 mg/dL 11/11/2024 2:59 AM [facility] Creatinine 0.74 0.56 - 0.96 mg/dL 11/11/2024 2:59 AM [facility] Sodium 137 136 - 145 mmol/L 11/11/2024 2:59 AM [facility] Potassium 4.3 3.5 - 4.5 mmol/L 11/11/2024 2:59 AM [facility] Chloride 109(H) 98 - 107 mmol/L 11/11/2024 2:59 AM [facility] CO2 21(L) 22 - 29 mmol/L 11/11/2024 2:59 AM [facility] Glucose 74 70 - 99 mg/dL 11/11/2024 2:59 AM [facility] Albumin 2.1(L) 3.4 - 5.0 g/dL 11/11/2024 2:59 AM [facility] Calcium 8.1(L) 8.4 - 10.2 mg/dL 11/11/2024 2:59 AM [facility] Phosphorus 4.2 2.9 - 5.1 mg/dL 11/11/2024 2:59 AM [facility] Anion Gap 7 6 - 16 11/11/2024 2:59 AM [facility] BUN/Creatinine Ratio 22 7 - 23 11/11/2024 2:59 AM [facility] Osmolality Calculated 284 275 - 295 mOsm/kg 11/11/2024 2:59 AM [facility] eGFR by CKD-EPI >90 >=90 mL/min/1.7 3 m2 11/11/2024 2:59 AM [facility] Blood BLOOD SPECIMEN / Unknown Lab Venipuncture / Unknown 11/11/2024 1:28 AM [employer] CH[employer]ER 11/11/2024 2:27 AM [facility] Tray Licona MD LAB - CHEMISTRY ORDERABLES Fi nal Result [facility] [address] [place] [address], [facility] [phone] * HEMOGLOBIN A1C (11/05/2024 12:40 AM [facility]) Hemoglobin A1c 4.8 <=5.6 % 11/05/2024 9:12 AM [facility] Estimated Average Glucose 91 mg/dL 11/05/2024 9:12 AM [facility] Comment: HbA1c Interpretation: Normal : < 5.7% Pre-diabetes: 5.7-6.4% Diabetes: Equal to or greater than 6.5% Test results diagnostic of diabetes should be repeated for confirmation. Treatment target values recommended by ADA and other clinical organizations should be used to evaluate metabolic control in patients. Reference: [place] [employer], Standards of Care in Diabetes -2020 In patients 70 years and older consider HbA1c target range of 7.0-7.5% (Reference: Jordan Mcgee et al. JAMDA. 2012) The Sebia assay for the measurement of HbA1c is a National Glycohemoglobin Standardization Program (NGSP) certified method. Blood BLOOD SPECIMEN / Unknown Lab Venipuncture / Unknown 11/05/2024 12:40 AM M[employer]TER [employer] CH[employer]ER 11/05/2024 1:17 AM [facility] Tray Licona MD LAB - CHEMISTRY ORDERABLES Fi nal Result [facility] [address] [place] [address], [facility] [phone] from Last 3 Months or Most Recently Relevant to Health Maintenance Insurance Advance Directives * Full Code (Latest Code Status on File) Date Activated Date Inactivated Comments 11/04/2024 8:11 AM 11/11/2024 6:56 PM Care Teams Printing Shop Supervisor Relationship Specialty Start Date End Date Bety Queen [address] [place] [phone] PCP - General 11/04/24
--- OUTSIDE RECORDS SUMMARY | 2025-04-12 14:55 | XMS_ITS | Data Portability ---
Author Organization [facility], Main Office Address [address] [place] [address] Care Team Providers Care Locomotive Operator Name Role Phone JAMSHID LAROSE Primary Care Provider JAMSHID LAROSE Referring Provider JAMSHID LAROSE Primary Care Provider Assessment Encounter Date Assessment Date Assessment LastModified by Organization Details LastModified Time 11/17/2024 11/17/2024 I have reconciled the patient's medications post their discharge from inpatient facility. [email or web address] Not available 11/17/2024 14:46:53 Plan of Treatment Reminders Order Date Submit Date Provider Last Modified By Organization Details Last Modified Time Details Appointments None recorded. Lab drug screen, urine 2024 025 [facility] (Lab), [address] [place], [address], 5 17:20:55 unlisted lab - CBC study [address] [facility] (Lab), [address] [place], [address], 5 08:04:22 Referral None recorded. Procedures None recorded. Surgeries None recorded. Imaging XR, hip + pelvis, bilateral - Hx of idiopathic fractures 2024 025 [email or web address] [facility], [address] [place], [address], 5 11:44:50 US, duplex, venous, lower extremity, unilateral 2024 025 CYNTHIA [facility], [address], [place], [address], 5 07:24:47 XR, hip, unilateral, 2 or 3 view - Please XR rt hip 2023 024 [email or web address] [facility], [address], [place], [address], 4 09:00:50 Medication Orders oxycodone-a cetaminophe n 10 mg-325 mg tablet 2024 025 [facility], [address] , [place], [place], [id number], 5 12:35:12 oxycodone-a cetaminophe n 10 mg-325 mg tablet 2024 025 [facility], [address] , [place], [place], [id number], 5 12:35:12 gabapentin 300 mg capsule 2023 024 [email or web address]13, [address] , [place], [place], [id number], 5 14:17:24 triamcinolo ne acetonide 40 mg/mL suspension for injection 2023 024 Not available 5 14:18:57 hydrocodone 5 mg-acetamin ophen 325 mg tablet 2023 024 [facility]36, [address], [place], [place], [id number], 5 14:38:58 Zithromax Z-Nima 250 mg tablet 2023 024 [facility]239, [address] , [place], [place], [id number], 11:58:51 acetaminoph en 300 mg-codeine 30 mg tablet 2023 024 [email or web address]52795, [address] [facility], [place], [place], [id number], 14:14:13 gabapentin 800 mg tablet 2023 024 [facility]30813, [address] [facility], [place], [place], [id number], 14:16:41 Patient TargetsNo targets recorded. Patient Instructions Encounter Date Encounter Id Patient Instructions Last Modified By Organization Details Last Modified Time 11/17/2024 [id number] Thank you for your visit to our office today. We would like to request that you reach out to your referring or previous provider and request that they send us a Summary of Care in electronic form, so that we may have it on file in your medical record. At your visit, we had the medical records we needed to provide you with the best possible care; however, for insurance purposes, an electronic Summary of Care is beneficial. Thank you for your assistance in obtaining this information and we look forward to providing continued care to you. Please review your medication list from the Summary of Care for this visit. If there are any differences from what you are currently taking at home, please call us to discuss. [email or web address] Not available 11/17/2024 14:46:53 Homebound Status : Patient has an inability to leave the home without a taxing effort and assistance from another person Required Home Health Services: [facility], physical therapy Durable Medical Equipment needed: walker with seat Billing Guidelines CPT code 29633- Transitional Care Management services with moderate medical decision complexity (pxyq-db-idyp visit within 14 days of discharge). CPT code 38080- Transitional Care Management services with high medical decision complexity (pmyl-gq-yauo visit within 7 days of discharge). [email or web address] Not available 11/17/2024 15:10:53 Reason for Referral None Reported. Results Created Date Observation Date Name Description Value Unit Range Abnormal Flag Note LastModifiedBy Organization Detail LastModifiedTime 11/03/1911/03/2024 XR, hip, unila teral , 2 or 3 view No observ ation record ed. [facility] [address] [place], [address], 11/04/2024 08:48:48 11/03/19 25 11/03/2024 XR, hip, unila teral , 2 or 3 view No observ ation record ed. [facility] [address] [place], [address], 11/04/2024 08:48:49 11/03/19 25 11/03/2024 XR, hip, unila teral , 2 or 3 view No observ ation record ed. [address] [facility] [address] [place], [address], 11/05/2024 10:38:21 12/11/19 25 12/11/2024 XR, chest No observ ation record ed. [address] [place], [address], 12/14/2024 08:52:24 12/11/19 25 12/11/2024 CT, angio gram, chest , w/ contr ast No observ ation record ed. [address] [place], [address], 12/14/2024 08:55:53 12/13/19 25 12/09/2024 US, duple x, venou s, lower extre mity, unila teral No observ ation record ed. [address] [place], [address], 12/17/2024 10:19:45 03/10/20 25 03/10/2025 DEXA No observ ation record ed. [address] ([employer]) [address] [place], [address], 03/10/2025 17:23:13 Result Notes None recorded. Problems Name Problem SNOMED Code Status Onset Date Resolution Date Notes Provider Name and Address Organization Details Recorded Time Fracture of bone 104951541 Active Not Available [facility] 4 18:43:05 Seizure disorder 757742544 Active Not Available [facility] 4 18:43:05 Gastroeso phageal reflux disease 978816341 Completed 06/18/2024 MAURICE Nettles [address], [place], [address] , [employer] 4 11:00:00 Enthesopa thy 42851536 Active Not Available [facility] 4 18:43:05 Headache 47931679 Completed 06/18/2024 MAURICE Nettles [address], [address], [place], [address] , [employer] 4 11:00:13 Degenerat ion of lumbar intervert ebral disc 71671412 Active Not Available [facility] 4 18:43:05 Anemia 784876061 Active Not Available [facility] 4 18:43:05 Rib pain 917141319 Active Not Available [facility] 4 18:43:05 Vitamin D deficienc y 52393339 Active 2016 Not Available [facility] 4 18:43:05 Depressiv e disorder 65196745 Active Not Available [facility] 4 18:43:06 Seasonal allergic rhinitis 903822974 Active Not Available [facility] 4 18:43:06 Sinusitis 48229438 Completed 06/18/2024 MAURICE Nettles [address], [place], [address] , [employer] 4 11:00:26 Neuropath y 804284071 Active Not Available [facility] 4 18:43:06 Symptoms of depressio n 725024699 Active Not Available [facility] 4 18:43:06 Foot pain 36452252 Active Not Available [facility] 4 18:43:06 Pain of hip region 04904604 Active Not Available [facility] 4 18:43:06 Pain of breast 19260259 Active Not Available [facility] 4 18:43:06 Osteoporo sis 52616138 Active DEXA 04/12 Not Available [facility] 4 18:43:06 Rheumatoi d arthritis 06510566 Active Not Available [facility] 4 18:43:06 Intervert ebral disc prolapse 96813916 Active L spine Not Available [facility] 4 18:43:06 Pain in limb 24819274 Active Not Available [facility] 4 18:43:06 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 Not Available [facility] 4 18:43:06 Iron deficienc y anemia 30560633 Active 2022 Not Available [facility] 4 18:43:06 Cobalamin deficienc y 859234789 Active 2022 Not Available [facility] 4 18:43:05 Essential hypertens ion 20131700 Active 2022 Not Available [facility] 4 18:43:06 Fatigue 32024380 Active 2022 Not Available [facility] 4 18:43:06 Gastroeso phageal reflux disease without esophagit is 844944773 Active 2022 Not Available [facility] 4 18:43:05 Dysuria 81242021 Completed 202206/18/2024 MAURICE Nettles [address], [place], [address] , [facility] 4 10:59:48 Acute urinary tract infection 020873156 Completed 202206/18/2024 MAURICE Nettles [address], [place], [address] , [place] [facility] [employer] [facility] 4 10:59:00 Thyroid function tests abnormal 177099953 Active 2022 Not Available [facility] 4 18:43:05 Acute sinusitis 73791219 Completed 202206/18/2024 MAURICE Nettles [address], [place], [address] , [facility] [employer] [facility] 4 10:58:56 Hypoglyce mike 934017280 Active 2022 Not Available [facility] 4 18:43:05 Sprain of right ankle 80598489275 538488 Active 2022 Not Available [facility] 4 18:43:05 Strain of knee 79834894821 3 Active 2022 Not Available [facility] 4 18:43:06 Pain of right knee joint 05066746105 4100 Active 2022 Not Available [facility] 4 18:43:06 Pain of bilateral hip joints 20284369807 337602 Active 2022 Not Available [facility] 4 18:43:05 Constipat ion 10243587 Active 2022 Not Available [facility] 4 18:43:05 Pain in right arm 818333692 Active 2022 Not Available [facility] 4 18:43:05 Herpes zoster 7638329 Active 2022 Not Available [facility] 4 18:43:06 Type 2 diabetes mellitus 29226588 Active 2022 Not Available [facility] 4 18:43:06 Seasonal allergy 973724131 Active 2022 Not Available [facility] 4 18:43:06 Weakness of left lower limb Active 2022 Not Available [facility] 4 18:43:06 Cough 72260634 Completed 202306/18/2024 MAURICE Nettles [address], [place], [address] , [facility] [employer] [facility] 4 10:59:08 Fibromyal maicol 021126547 Active [address], [place], [address] , [employer] [facility] [employer] [facility] 4 12:28:25 Candidias is of [facility] 93401433 Completed 202306/18/2024 MAURICE Nettles [address], [place], [address] , [employer] [place] [facility] [place] [facility] 4 10:59:03 2+ pitting edema 704503538 Active [address], [place], [address] , [employer] [place] [facility] [employer] [facility] 4 12:28:58 Open wound of left lower leg 93655194224 775402 Active 2023 Evelia Huston PA-C [address], [place], [address] , [employer] [facility] [employer] [facility] 4 13:32:12 Nocturnal hypoglyce mike due to diabetes mellitus 913717597 Active 2023 MAURICE Nettles [address], [place], [address] , [employer] [facility] [employer] [facility] 4 12:27:38 Chronic ulcer of skin 43885076 Active 2023 MAURICE Nettles [address], [place], [address] , [facility] [place] [facility] 4 10:29:18 Open wound of lower leg 107353842 Active 2023 Evelia Huston PA-C [address], [place], [address] , [employer] [facility] [employer] [facility] 4 13:33:05 Open wound of lower leg 671972073 Active 2023 Evelia Huston PA-C [address], [place], [address] , [employer] [facility] [employer] [facility] 4 13:33:20 Venous insuffici ency of leg 772654373 Active 2023 Evelia Huston PA-C [address], [place], [address] , [facility] [employer] [facility] [employer] [facility] 4 11:49:01 Pain of right hip joint 47463788967 9102 Active 2023 MAURICE Nettles [address], [place], [address] , [employer] [place] [facility] [employer] [facility] 4 17:00:00 Acute bacterial sinusitis 82968378 Active 2023 MAURICE Nettles [address], [place], [address] , [employer] [place] [facility] [employer] [facility] 4 17:03:59 Closed fracture of hip 088698544 Active 2024 MAURICE Nettles [address], [place], [address] , [employer] [facility] [employer] [facility] 5 08:46:18 Closed fracture of hip 372478249 Active 2024 MAURICE Nettles [address], [place], [address] , [employer] [facility] [employer] [facility] 5 08:46:21 Fracture of pelvis 27326720 Active 2024 MAURICE Nettles [address], [place], [address] , [employer] [facility] [employer] [facility] 5 14:44:21 Night sweats 11172393 Active [address], [place], [address] , [employer] [facility] [employer] [facility] 5 14:52:32 Swelling of lower leg 343561258 Active [address], [place], [address] , [employer] [facility] 5 14:53:54 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 Please review these documents and add these problems to the patient's chart manually as needed. Problem Notes None recorded. Procedures Surgical History Date Name Laterality Status Provider Name and Address Organization Details Recorded Time 5 Transitional_C are_Management completed MAURICE Nettles [address], [place], [address], [employer] 11/17/2024 14:51:17 4 Blank Procedure Note completed Evelia Huston PA-C [address], [place], [address], [facility] 08/30/2024 13:30:29 4 Blank Procedure Note completed Uri Jteer RN [facility] 08/16/2024 11:50:00 4 Blank Procedure Note completed Evelia Huston PA-C [address], [place], [address], [employer] [facility] 08/09/2024 11:36:40 4 Blank Procedure Note completed Evelia Huston PA-C [address], [place], [address], [employer] [facility] 01/06/2025 12:23:26 4 Blank Procedure Note completed Nika Nunez RN [facility] [employer] [facility] 07/26/2024 13:23:02 3 Hip surgery completed Zakia Garcia MA [facility] [employer] [facility] 08/21/2023 11:35:51 Gastric Bypass completed DENNIS Sarkar [facility] [employer] [facility] 05/16/2023 10:48:41 Imaging Results None recorded. Procedure Notes None recorded. Medical Equipment None Reported. Allergies Allergen ID Allergen Name Allergen Category Reaction Reaction Severity Criticality Documentation Date Start Date Code Code System Note Provider Name and Address Organization Details Recorded Time 3540 baclofen medicatio n hallucina tions Not available Not available 12/25/2022 1292 RxNorm Not Available [facility] 3 02:43:07 Medications Name Sig Start Date Stop Date Status Note LastModified by Organization Details LastModified Time cyclobenz aprine 10 mg tablet TAKE 1 TABLET BY MOUTH THREE TIMES DAILY NEEDED 11/17 completed Not Available Not Available Not Available amoxicill in 500 mg capsule 02/17 completed Not Available Not Available Not Available methocarb jocelyn 500 mg tablet 1-2 po q6 hours prn spasm active Not Available Not Available No t Available buspirone 5 mg tablet 1 po bid prn anxiety 11/25 completed Not Available Not Available Not Available gabapenti n 600 mg tablet Take by oral route for 30 days. 07/09 completed Not Available Not Available Not Available paroxetin e 10 mg tablet TAKE 1 TABLET EVERY DAY 05/24 completed Not Available Not Available Not Available citalopra m 40 mg tablet Take 1 tablet every day by oral route. 09/06 completed Not Available Not Available Not Available polyethyl jaclyn glycol 3350 17 gram oral powder packet 06/18 completed Not Available Not Available Not Available azithromy clifford 250 mg tablet TAKE 1 TABLET BY MOUTH DAILY 01/28 completed Not Available Not Available Not Available tizanidin e 4 mg tablet TAKE 1 TABLET BY MOUTH EVERY 8 HOURS NEEDED 01/18 completed Not Available Not Available Not Available fluconazo le 150 mg tablet TAKE 1 TABLET BY MOUTH FOR 1 DOSE. MAY REPEAT DOSE AFTER 72 HOURS 06/18 completed Not Available Not Available Not Available metoprolo l succinate ER 50 mg tablet,ex tended release 24 hr TAKE 1 TABLET BY MOUTH DAILY active Not Available Not Available No t Available hydrochlo rothiazid e 50 mg tablet TAKE 1 TABLET BY MOUTH ONCE DAILY 12/27 completed Not Available Not Available Not Available valacyclo vir 1 gram tablet TAKE 1 TABLET BY MOUTH EVERY 8 HOURS FOR 7 DAYS 06/18 completed Not Available Not Available Not Available hydrocodo ne 5 mg-acetam inophen 325 mg tablet TAKE 1 TO 2 TABLETS BY MOUTH EVERY 4 TO 6 HOURS NEEDED FOR SEVERE PAIN. MAX 6 TABLETS DAILY active Not Available Not Available No t Available benzpheta mine 50 mg tablet Take 1 tablet 3 times a day by oral route. 02/10 completed Not Available Not Available Not Available senna 8.6 mg tablet Take 2 tablets twice a day by oral route as needed. active Not Available Not Available No t Available meloxicam 15 mg tablet TAKE 1 TABLET BY MOUTH DAILY NEEDED FOR PAIN 01/28 completed Not Available Not Available Not Available famotidin e 40 mg tablet TAKE 1 TABLET BY MOUTH EVERY DAY AT DINNER 2024 active Not Available Not Available Not Avai lable prednison e 20 mg tablet TAKE 2 TABLETS BY MOUTH DAILY 01/28 completed Not Available Not Available Not Available alendrona te 70 mg tablet TAKE 1 TABLET BY MOUTH EVERY WEEK active Not Available Not Available No t Available gabapenti n 400 mg capsule TAKE 3 CAPSULES BY MOUTH EVERY 6 HOURS active Not Available Not Available No t Available venlafaxi ne ER 150 mg capsule,e xtended release 24 hr Take 1 capsule every day by oral route. active Not Available Not Available No t Available topiramat e 25 mg tablet 1 po qAM and 2 po qhs x 7 days then increase to 2 po bid 10/26 completed Not Available Not Available Not Available acetamino phen 300 mg-codein e 15 mg tablet active Not Available Not Available Not Available phentermi ne 37.5 mg tablet TAKE 1 TABLET BY MOUTH ONCE DAILY 04/22 completed Not Available Not Available Not Available acetamino phen 300 mg-codein e 30 mg tablet TAKE 1 TABLET BY MOUTH EVERY 6 HOURS NEEDED active Not Available Not Available No t Available fexofenad ine 180 mg tablet Take 1 tablet every day by oral route. 09/11 completed Not Available Not Available Not Available ciproflox acin 500 mg tablet 1 po x 1 01/17 completed Not Available Not Available Not Available sulfameth oxazole 800 mg-trimet hoprim 160 mg tablet TAKE 1 TABLET BY MOUTH TWICE DAILY FOR 10 DAYS DIRECTED 07/21 completed Not Available Not Available Not Available hydrocodo ne 10 mg-acetam inophen 325 mg tablet TAKE 1 TABLET BY MOUTH EVERY 4 HOURS NEEDED active Not Available Not Available No t Available peg-elect rolyte solution 420 gram oral solution MIX AND DRINK DIRECTED 11/17 completed Not Available Not Available Not Available omeprazol e 40 mg capsule,d elayed release TAKE 1 CAPSULE BY MOUTH EVERY DAY active Not Available Not Available No t Available aspirin 81 mg tablet,de layed release TAKE 1 TABLET BY MOUTH TWICE DAILY FOR 14 DAYS active Not Available Not Available No t Available tramadol 50 mg tablet TAKE 1 TABLET BY MOUTH EVERY 6 HOURS NEEDED FOR PAIN 06/18 completed Not Available Not Available Not Available ketorolac 30 mg/mL (1 mL) injection solution Inject 1 mL by intramus cular route for 1 day. 02/20 completed Not Available Not Available Not Available amoxicill in 500 mg tablet Take 1 tablet every 12 hours by oral route for 5 days. 05/14 completed Not Available Not Available Not Available lamotrigi ne 25 mg tablet TAKE 1 TABLET BY MOUTH ONCE DAILY FOR 2 WEEKS THEN 2 TABLETS DAILY FOR 2 WEEKS THEN 4 TABLETS DAILY ONWARD 08/01 completed Not Available Not Available Not Available baclofen 20 mg tablet Take 1 tablet 3 times a day by oral route. 10/11 completed Not Available Not Available Not Available oxycodone -acetamin ophen 5 mg-325 mg tablet TAKE 1 TABLET BY MOUTH EVERY 8 HOURS NEEDED FOR PAIN 06/18 completed Not Available Not Available Not Available lancets check blood glucose once daily 12/27 completed Not Available Not Available Not Available amoxicill in 875 mg tablet TAKE 1 TABLET BY MOUTH EVERY 12 HOURS FOR 7 DAYS 06/18 completed Not Available Not Available Not Available hydromorp erna 2 mg tablet 11/17 completed Not Available Not Available Not Available warfarin 6 mg tablet Take 1 tablet every day by oral route. 07/30 completed Not Available Not Available Not Available famotidin e 20 mg tablet TAKE 1 TABLET BY MOUTH TWICE DAILY active Not Available Not Available No t Available methocarb jocelyn 750 mg tablet Take 1 tab by mouth 3 times a day as needed for muscle spasms 2024 active Not Available Not Available Not Avai lable oxycodone -acetamin ophen 10 mg-325 mg tablet TAKE 1 TABLET BY MOUTH EVERY 6 TO 8 HOURS NEEDED FOR SEVERE PAIN 01/04 completed Not Available Not Available Not Available gabapenti n 800 mg tablet TAKE 1 TABLET BY MOUTH TWICE DAILY DIRECTED active Not Available Not Available No t Available OneTouch Ultra Test strips USE 1 STRIP TO CHECK GLUCOSE ONCE DAILY active Not Available Not Available No t Available triamcino lone acetonide 40 mg/mL suspensio n for injection Take 80 mg every day by injectio n route as directed for 1 day. 11/17 completed Not Available Not Available Not Available hydrocodo ne 7.5 mg-acetam inophen 325 mg tablet 02/17 completed Not Available Not Available Not Available cephalexi n 500 mg capsule 06/15 completed Not Available Not Available Not Available paroxetin e 20 mg tablet Take 1 tablet every day by oral route. 05/13 completed Not Available Not Available Not Available pantopraz ole 40 mg tablet,de layed release TAKE 1 TABLET BY MOUTH DAILY 06/18 completed Not Available Not Available Not Available ferrous sulfate 325 mg (65 mg iron) tablet TAKE 1 TABLET BY MOUTH ONCE DAILY AT BEDTIME 12/14 completed Not Available Not Available Not Available esomepraz ole magnesium 40 mg capsule,d elayed release TAKE 1 CAPSULE BY MOUTH EVERY DAY 11/18 completed [facility] Not Available Not Available Not Available triamcino lone acetonide 0.1 % topical ointment APPLY A THIN LAYER TO THE AFFECTED AREA(S) BY TOPICAL ROUTE 2 TIMES PER DAY as needed active Not Available Not Available No t Available ranitidin e 150 mg tablet Take 1 tablet twice a day by oral route. 07/05 completed Not Available Not Available Not Available buspirone 10 mg tablet TAKE 1 TABLET BY MOUTH THREE TIMES DAILY NEEDED 11/23 completed Not Available Not Available Not Available warfarin 2 mg tablet 2 tabs po qMon and Wed, 1 po qTues, Thurs, Fri, Sat, Sun active 3 mg daily Not Available Not Available Not Available warfarin 5 mg tablet Take 1 tablet every day by oral route. 07/30 completed Not Available Not Available Not Available indometha clifford 50 mg capsule Take 1 capsule 3 times a day by oral route for 10 days. 06/23 completed Not Available Not Available Not Available nicotine 21 mg/24 hr daily transderm al patch APPLY 1 PATCH TOPICALL Y TO THE SKIN EVERY MORNING 06/18 completed Not Available Not Available Not Available docusate sodium 100 mg capsule Take 1 capsule twice a day by oral route. 05/13 completed Not Available Not Available Not Available gabapenti n 300 mg capsule TAKE 1 CAPSULE BY MOUTH EVERY DAY AT NOON active Not Available Not Available No t Available omeprazol e 20 mg capsule,d elayed release TAKE 1 CAPSULE BY MOUTH TWICE DAILY WITH MEALS active Not Available Not Available No t Available lisinopri l 20 mg-hydroc hlorothia zide 25 mg tablet TAKE 2 TABLETS BY MOUTH ONCE DAILY 06/18 completed Not Available Not Available Not Available diclofena c sodium 75 mg tablet,de layed release TAKE 1 TABLET BY MOUTH TWICE DAILY active Not Available Not Available No t Available cephalexi n 500 mg tablet Take 1 tablet twice a day by oral route for 7 days. 04/16 completed Not Available Not Available Not Available monteluka st 10 mg tablet TAKE 1 TABLET BY MOUTH EVERY DAY 2022 active Not Available Not Available Not Avai lable acetamino phen 300 mg-codein e 60 mg tablet 1 active Not Available Not Available Not Available topiramat e 200 mg tablet 1 po bid 06/15 completed Not Available Not Available Not Available hydrochlo rothiazid e 25 mg tablet Take 1 tablet every day by oral route. 12/27 completed Not Available Not Available Not Available furosemid e 20 mg tablet TAKE 1 TABLET BY MOUTH EVERY DAY active Not Available Not Available No t Available gabapenti n 100 mg capsule Take 2 capsules 3 times a day by oral route. 11/17 completed Not Available Not Available Not Available diazepam 10 mg tablet TAKE 1 TABLET BY MOUTH 30 MINUTES BEFORE PROCEDUR E 04/12 completed Not Available Not Available Not Available hydroxych loroquine 200 mg tablet 06/30 completed Not Available Not Available Not Available albuterol sulfate HFA 90 mcg/actua tion aerosol inhaler INHALE 2 PUFFS BY MOUTH EVERY 4 HOURS NEEDED active Not Available Not Available No t Available ferrous sulfate 325 mg (65 mg iron) tablet,de layed release Take 1 tablet every day by oral route at bedtime. 12/14 completed 2-3x per week 10/28/18 Not Available Not Available Not Available Vitamin D2 1,250 mcg (50,000 unit) capsule TAKE 1 CAPSULE BY MOUTH TWICE A WEEK 05/16 completed Not Available Not Available Not Available hydrocodo ne 10 mg-acetam inophen 650 mg tablet 02/17 completed Not Available Not Available Not Available brompheni ramine-ps eudoephed rine-DM 2 mg-30 mg-10 mg/5 mL oral syrup Take 10 mL every 4 hours by oral route as needed for 3 days. active Not Available Not Available No t Available hydrocodo ne 7.5 mg-acetam inophen 500 mg tablet 02/17 completed Not Available Not Available Not Available topiramat e 100 mg tablet 1 po bid x 7 days then 1/2 tab po bid x 7 days then 1/2 tab po qday x 7 days then d/c. active Not Available Not Available No t Available fluticaso ne propionat e 50 mcg/actua tion nasal spray,[place] [employer] SHAKE LIQUID AND USE 2 SPRAYS IN EACH NOSTRIL EVERY DAY active Not Available Not Available No t Available doxycycli ne hyclate 100 mg tablet TAKE 1 TABLET BY MOUTH TWICE DAILY FOR 14 DAYS DIRECTED 08/09 completed Not Available Not Available Not Available amoxicill in 875 mg-potass ium clavulana te 125 mg tablet Take 1 tablet every 12 hours by oral route for 7 days. 10/26 completed Not Available Not Available Not Available buspirone 15 mg tablet Take 1 tablet 3 times a day by oral route as needed. 09/06 completed Not Available Not Available Not Available Oyster Shell Calcium-V itamin D3 500 mg-5 mcg (200 unit) tablet 1 po bid 09/06 completed Not Available Not Available Not Available enoxapari n 80 mg/0.8 mL subcutane ous syringe 07/30 completed Not Available Not Available Not Available enoxapari n 100 mg/mL subcutane ous syringe Inject 85 mg every 12 hours by subcutan eous route for 14 days. 07/30 completed Not Available Not Available Not Available escitalop hedy 10 mg tablet TAKE 1 TABLET EVERY DAY active Not Available Not Available No t Available escitalop hedy 20 mg tablet TAKE 1 TABLET BY MOUTH ONCE DAILY 12/27 completed Not Available Not Available Not Available metaxalon e 800 mg tablet Take 1 tablet 3 times a day by oral route as needed for 10 days. 01/28 completed Not Available Not Available Not Available bupropion HCl XL 150 mg 24 hr tablet, extended release TAKE 1 TABLET BY MOUTH EVERY DAY DIRECTED active Not Available Not Available No t Available topiramat e 50 mg tablet TAKE 1 TABLET BY MOUTH TWICE DAILY 2024 active Not Available Not Available Not Avai lable nitrofura ntoin monohydra te/macroc rystals 100 mg capsule TAKE 1 CAPSULE BY MOUTH EVERY 12 HOURS FOR 7 DAYS 04/16 completed Not Available Not Available Not Available duloxetin e 30 mg capsule,d elayed release TAKE 1 CAPSULE BY MOUTH DAILY WITH A 60 MG CAPSULE FOR A TOTAL OF 90 MG 04/12 completed Not Available Not Available Not Available duloxetin e 60 mg capsule,d elayed release TAKE 1 CAPSULE BY MOUTH DAILY active Not Available Not Available No t Available pregabali n 100 mg capsule TAKE 1 CAPSULE BY MOUTH DAILY FOR 20 DAYS ADD THIS NOON BETWEEN 150 MG DOSING 09/28 completed Not Available Not Available Not Available pregabali n 150 mg capsule TAKE 1 CAPSULE BY MOUTH TWICE DAILY 09/28 completed Not Available Not Available Not Available Mucinex D 60 mg-600 mg tablet,ex tended release Take 1 tablet twice a day by oral route as needed. 08/27 completed Not Available Not Available Not Available gabapenti n 800mg Take 1 TID 01/28 completed Not Available Not Available Not Available cholecalc iferol (vitamin D3) 25 mcg (1,000 unit) tablet active Not Available Not Available Not Available calcium 600 mg (as carbonate )-vitamin D3 10 mcg (400 unit) tablet TAKE 1 TABLET BY MOUTH DAILY active Not Available Not Available No t Available Golytely 236 gram-22.7 4 gram-6.74 gram-5.86 gram oral solution take as directed 07/26 completed Not Available Not Available Not Available omeprazol e 20 mg tablet,de layed release Take 1 tablet every day by oral route. 05/13 completed Not Available Not Available Not Available Savella 12.5 mg (5)-25 mg(8)-50m g(42) tablets in a dose pack TAKE DIRECTED 11/18 completed prior auth Not Available Not Available Not Available Gavilax 17 gram/dose oral powder active Not Available Not Available Not Available Vitamin D3 125 mcg (5,000 unit) tablet Take 2 tablets every week by oral route. 05/16 completed Not Available Not Available Not Available Prolia 60 mg/mL subcutane ous syringe INJECT 1 ML(60 MG) UNDER THE SKIN EVERY 6 MONTHS 06/18 completed Not Available Not Available Not Available Xarelto 20 mg tablet 1 po qday 12/24 completed Not Available Not Available Not Available Ultra Thin Lancets 30 gauge 12/27 completed Not Available Not Available Not Available Eliquis 5 mg tablet Take 1 tablet twice a day by oral route. 09/06 completed Not Available Not Available Not Available potassium chloride ER 20 mEq tablet,ex tended release TAKE 1 TABLET BY MOUTH ONCE DAILY 06/18 completed Not Available Not Available Not Available naloxone 4 mg/actuat ion nasal spray CALL 911. SPR CONTENTS OF ONE SPRAYER (0.1ML) INTO ONE NOSTRIL. REPEAT IN 2-3 MIN IF SYMPTOMS OF OPIOID EMERGENC Y PERSIST, ALTERNAT E NOSTRILS active Not Available Not Available No t Available Trintelli x 5 mg tablet 1 po qday x 2 weeks then increase to 2 po qday 07/02 completed Dispense Qty: 35. Not Available Not Available Not Available Trintelli x 10 mg tablet Take 2 tablets every day by oral route. 07/31 completed Not Available Not Available Not Available OneTouch Ultra Blue Test Strip USE 1 STRIP TO CHECK GLUCOSE ONCE DAILY 06/18 completed Not Available Not Available Not Available OneTouch Ultra2 Meter USE DIRECTED active Not Available Not Available No t Available OneTouch Delica Plus Lancet 33 gauge TEST DAILY active Not Available Not Available No t Available Paxlovid 300 mg (150 mg x 2)-100 mg tablets in a dose pack 1 dose po bid x 5 days GFR > 60 02/20 completed Not Available Not Available Not Available FreeStyle Simon 3 Sensor device 2023 active Not Available Not Available Not Avai lable FreeStyle Simon 3 [place] 2023 active Not Available Not Available Not Avai lable Vitals Date Recorded Body height Body temperature Heart rate Respiratory rate Oxygen saturation Oxygen saturation in Arterial blood by Pulse oximetry Systolic blood pressure Diastolic blood pressure Provider Name and Address Organization Details Last Updated DateTime 5 170.18 cm 97.3 [degF] 96 /min 24 /min 99 % 99 % 148 mm[Hg] 82 mm[Hg] Rafaela Torres RN [facility] 5 14:22:00 Date Recorded Body height Body mass index (BMI) Body weight Body temperature Heart rate Respiratory rate Oxygen saturation Oxygen saturation in Arterial blood by Pulse oximetry Systolic blood pressure Diastolic blood pressure Provider Name and Address Organization Details Last Updated DateTime 5 170.18 cm 22.4 kg/m2 38435.7 1 g 97 [degF] 59 /min 20 /min 99 % 99 % 144 mm[Hg] 74 mm[Hg] Rafaela Torres RN [facility] 5 14:41:41 Date Recorded Body height Body mass index (BMI) Body weight Body temperature Heart rate Respiratory rate Oxygen saturation Oxygen saturation in Arterial blood by Pulse oximetry Systolic blood pressure Diastolic blood pressure Provider Name and Address Organization Details Last Updated DateTime 5 170.18 cm 22.4 kg/m2 29824.4 6 g 96.6 [degF] 65 /min 24 /min 99 % 99 % 152 mm[Hg] 82 mm[Hg] Rafaela Torres RN [facility] 5 11:58:37 Date Recorded Body height Body mass index (BMI) Body weight Body temperature Heart rate Respiratory rate Oxygen saturation Oxygen saturation in Arterial blood by Pulse oximetry Systolic blood pressure Diastolic blood pressure Provider Name and Address Organization Details Last Updated DateTime 4 170.18 cm 24.2 kg/m2 18099.6 2 g 97 [degF] 60 /min 24 /min 97 % 97 % 180 mm[Hg] 94 mm[Hg] Rafaela Torres RN [facility] 4 16:38:54 Date Recorded Body height Body mass index (BMI) Body weight Body temperature Heart rate Respiratory rate Oxygen saturation Oxygen saturation in Arterial blood by Pulse oximetry Systolic blood pressure Diastolic blood pressure Provider Name and Address Organization Details Last Updated DateTime 4 170.18 cm 24.2 kg/m2 86278.6 2 g 96.8 [degF] 83 /min 24 /min 99 % 99 % 146 mm[Hg] 80 mm[Hg] Rafaela Torres RN [place] [facility] [employer] [facility] 4 11:18:18 Social History Question Answer Notes LastModified by Organizat ion Details LastModified Time Tobacco Smoking Status Current Every Day Smoker Not Available [facility] 12/25/2022 02:30:52 Do You Have An Advance Directive? No [id number] Information not available 12/25/2022 What Is Your Level Of Caffeine Consumption? Moderate [id number] Information not available 12/25/2022 How Much Tobacco Do You Chew? None [id number] Information not available 12/25/2022 In The 14 Days Before Symptom Onset, Have You Had Close Contact With A Laboratory-confirm ed COVID-19 While That Case Was Ill? No Information n ot available 06/18/2024 In The 14 Days Before Symptom Onset, Have You Had Close Contact With A Person Who Is Under Investigation For COVID-19 While That Person Was Ill? No Information not available 06/18/2024 What Type Of Diet Are You Following? REGULAR [id number] Information not available 12/25/2022 Which Illicit Or Recreational Drugs Have You Used? No [id number] Information not available 12/25/2022 Have There Been Any Changes To Your Family Or Social Situation? Yes Information no t available 06/18/2024 Are There Any Guns Present In Your Home? No [id number] Information not available 12/25/2022 Do You Use Insect Repellent Routinely? No Information not available 06/18/2024 Where Do You Live? Apartment Inform ation not available 06/18/2024 Do You Have A Medical Power Of Security Patrol Officer? No Information not available 06/18/2024 What Was The Date Of Your Most Recent Tobacco Screening? 05/16/2023 Information not available 05/16/2023 How Many Children Do You Have? 1 Information not available 06/18/2024 Do You Have Any Pets? No Information not available 06/18/2024 What Is Your Relationship Status? Information not available 06/18/2024 Do You Use Your Seat Belt Or Car Seat Routinely? Yes Information not available 06/18/2024 Do You Have Smoke And Carbon Monoxide Detectors In Your Home? Yes Information not available 06/18/2024 At What Age Did You Start Smoking Tobacco? 16 [id number] Information not available 12/25/2022 Are You Passively Exposed To Smoke? No [id number] Information not available 12/25/2022 Are There Any Smokers In Your House? Yes Information not available 06/18/2024 How Much Tobacco Do You Smoke? 1 PPD [id number] Information not available 12/25/2022 Do You Participate In Social Media? Yes Information not available 06/18/2024 Do You Use Sunscreen Routinely? No [id number] Information not available 12/25/2022 Have You Recently Traveled Abroad? No Information not available 06/18/2024 Sex: Unknown Functional Status Question Answer Note LastModified by [employer] ion Details LastModified Time What is your level of alcohol consumption? None [id number] Information not available 12/25/2022 Do you or have you ever used smokeless tobacco? Never used smokeless tobacco [id number] Information not available 12/25/2022 Are you currently employed? No Information not available 06/18/2024 What is your occupation? disabled [id number] Information not available 12/25/2022 Do you or have you ever used e-cigarettes or vape? Never used electronic cigarettes [id number] Information not available 12/25/2022 What is your exercise level? None Information not available 11/17/2024 Mental Status Question Answer Note LastModified by Organizat ion Details LastModified Time Do you feel stressed (tense, restless, nervous, or anxious, or unable to sleep at night)? [id number] [id number] Information not available 12/25/2022 Family History Relationship Description Onset Age of this Age Resolved Age Notes LastModified by Organization Details LastModified Time Sister Family history of malignant neoplasm [email or web address] available 2022 10:47:31 Father Heart disease [email or web address] Not available 2022 10:47:39 Father Family history of stroke [email or web address] Not available 2022 10:47:47 Mother Diabetes mellitus [email or web address] Not available 2022 10:48:05 Notes:Many maternal aunts wi th breast cancer Medical History Condition Response BLINDNESS N RHEUMATIC FEVER N KIDNEY STONES N BLADDER PROBLEMS N OTHER # 1 N POLIO N LUNG DISEASE/DISORDER N RADIATION / CHEMOTHERAPY N COPD N Other # 2 N BLOOD DISEASES N SURGERY N EAR OR HEARING PROBLEMS N MUMPS N FEMALE PROBLEMS / INFECTIONS N DEPRESSION (INCLUDING POST ) Y BOWEL PROBLEMS N STROKE/TIA N THYROID DISEASE N ULCERS N BENIGN PROSTATIC HYPERPLASIA N MEASLES N CERVICALGIA N TB SKIN TEST N MYOCARDIAL INFARCTION N PARAPELGIA N OBESITY N GERD/NAUSEA N ANEURYSM N URINARY/BLADDER/KIDNEY PROBLEMS N INPATIENT PSYCH CARE N CORONARY ARTERY DISEASE (CAD) N MENIERE'S DISEASE N ADDICTION CONCERNS N ENDOMETRIOSIS N USE OF BLOOD THINNERS N SKIN PROBLEMS N EMPHYSEMA N GASTROINTESTINAL DISORDER N MUSCLE,JOINT OR BONE PROBLEMS N GASTROINTESTINAL BLEEDING N BLOOD CLOTS N ASTHMA Y CATARACTS N ERECTILE DYSFUNCTION N GI PROBLEMS N CHF N Low Testosterone N NEUROPATHY Y INFERTILITY N AIDS/HIV N FRACTURES Y VISION/EYE PROBLEMS N LIVER DISEASE N MALE HYPOGONADISM N HYPERTENSION Y ANXIETY DISORDER Y BLOOD TRANSFUSION N ANEMIA/BLOOD DISORDER N CHRONIC EAR INFECTIONS N BRONCHITIS N TUBERCULOSIS N GLAUCOMA N FOOT PROBLEM N DIVERTICULITIS N SLEEP APNEA N CHICKENPOX N ALLERGIES/HAYFEVER N INFECTIOUS DISEASE N PROSTATE N HEART ARRHYTHMIA N INSOMNIA N HIGH CHOLESTEROL / HYPERLIPIDEMIA N EYE PROBLEMS N HYPERTHYROIDISM N EATING DISORDER N NEUROLOGICAL PROBLEMS N EDEMA N CHRONIC PAIN SYNDROME N HYPOTHYROIDISM N CAROTID BLOCKAGE N CONSTIPATION N BACK / NECK PROBLEMS Y HAVE YOU BEEN HOSPITALIZED OR SEEN IN [facility] IN THE PAST YEAR ? Y ATHEROSCLEROSIS N BREAST PROBLEMS N DIALYSIS N ECZEMA N FIBROMYALGIA N OSTEOPOROSIS Y ARTHRITIS Y NO SIGNIFICANT PAST MEDICAL HISTORY N APPENDICITIS N DIABETES, TYPE Y BAD TEETH N HEARTBURN / REFLUX N ADD/ADHD N AUTISM SPECTRUM DISORDER (ASD) N HEPATITIS / LIVER DISEASE N PULMONARY DISEASE N GOUT N SLEEP DISORDER N ALZHEIMER'S DISEASE N PAIN Y DEMENTIA N HERPES N SEIZURES/EPILEPSY N HEADACHES/MIGRAINES N VASCULAR DISEASE N PACEMAKER N DIZZINESS N HEART DISEASE/HEART PROBLEMS N KIDNEY DISEASE N SCARLET FEVER N MULTIPLE SCLEROSIS N DEVELOPMENTAL OR BEHAVIORAL DISORDERS N MENTAL DISORDER/ILLNESS N CANCER: SPECIFY N CARDIAC ARRHYTHMIA N PNEUMONIA N ANESTHESIA COMPLICATIONS N ATRIAL FIBRILLATION N PULMONARY EMBOLISM N AUTOIMMUNE DISEASE N Gynecological History Statement/Question Response How many live births 1 Date of Last Colonoscopy Most Recent Bone Density Date of Last Pap Smear Current Control Method Hysterectom y Most Recent Mammogram Breast Problems no Obstetrics History GPAL:G 1 P 1 0 0 1 Type Value Full Term 1 Living 1 Total 1 Immunizations Vaccine Type Date Status Note Provider Nam e and Address Organization Details Recorded Time Influenza, split virus, quadrivalent, preservative 7 completed Not Available [facility] 11/17/2023 18:43:06 COVID-19, mRNA, LNP-S, PF, 30 mcg/0.3 mL dose 1 completed KENNEDY NettlesP [address], [place], [address], [facility] 06/18/2024 11:26:34 COVID-19, mRNA, LNP-S, PF, 100 mcg/0.5mL dose or 50 mcg/0.25mL dose 1 completed KENNEDY NettlesP [address], [place], [address], [employer] [facility] 06/18/2024 11:26:33 Influenza, split virus, quadrivalent, PF 9 completed Not Available [facility] 11/17/2023 18:43:06 pneumococcal polysaccharide PPV23 4 completed Not Available [facility] 11/17/2023 18:43:06 Tdap 4 completed Not Available [facility] 11/17/2023 18:43:06 Influenza, split virus, quadrivalent, PF 2 completed Not Available [facility] 11/17/2023 18:43:06 Influenza, split virus, quadrivalent, PF 1 completed Not Available [facility] 11/17/2023 18:43:06 Influenza, split virus, quadrivalent, PF 0 completed Not Available [facility] 11/17/2023 18:43:06 Influenza, split virus, quadrivalent, PF 8 completed Not Available [facility] 11/17/2023 18:43:06 Influenza, split virus, quadrivalent, preservative 6 completed Not Available [facility] 11/17/2023 18:43:06 Influenza, split virus, quadrivalent, PF 5 completed Not Available [facility] 11/17/2023 18:43:06 COVID-19, mRNA, LNP-S, PF, 100 mcg/0.5mL dose or 50 mcg/0.25mL dose 1 completed MAURICE Nettles [address], [place], [address], [employer] [facility] 06/18/2024 11:26:33 COVID-19, mRNA, LNP-S, PF, 100 mcg/0.5mL dose or 50 mcg/0.25mL dose 1 completed MAURICE Nettles [address], [place], [address], [employer] [facility] 06/18/2024 11:26:33 COVID-19, mRNA, LNP-S, PF, 30 mcg/0.3 mL dose, ky-sucrose 2 completed MAURICE Nettles [address], [place], [address], [employer] [facility] 06/18/2024 11:26:34 Influenza, split virus, quadrivalent, PF 3 [place] [employer] [facility] 08/21/2023 12:10:33 Past Encounters Encounter ID Performer Location Encounter Start Date Encounter Closed Date Diagnosis/Indication Diagnosis SNOMED-CT Code Diagnosis ICD10 Code Diagnosis Note [id number] Phyllis Chavez MD [facility] [address] [place] [address] 01/11/2021 00:00:00 01/22/2021 22:01:03 [id number] Phyllis Chavez MD [facility] Primary [facility] [place] [address] [place] [address] 01/30/2021 00:00:00 02/22/2021 11:07:36 [id number] Phyllis Chavez MD [facility] Primary [facility] [place] [address] [place] [address] 02/01/2021 00:00:00 02/22/2021 14:14:41 [id number] Phyllis Chavez MD [facility] Primary Care [place] [address] [place] [address] 04/12/2021 00:00:00 04/12/2021 09:17:37 [id number] Phyllis Chavez MD [facility] Primary Care [place] [address] [place] [address] 05/01/2021 00:00:00 05/01/2021 17:53:33 [id number] Phyllis Chavez MD [facility] Primary Care [place] [address] [place] [address] 08/01/2021 00:00:00 08/01/2021 11:32:29 [id number] Phyllis Chavez MD [facility] Primary Care [place] [address] [place] [address] 10/15/2021 00:00:00 10/15/2021 15:28:59 [id number] Phyllis Chavez MD [facility] Primary Care [place] [address] [place] [address] 04/22/2022 00:00:00 04/22/2022 11:41:27 [id number] Phyllis Chavez MD [facility] Primary Care [place] [address] [place] [address] 10/22/2022 00:00:00 10/22/2022 18:02:56 [id number] Phyllis Chavez MD [facility] Primary Care [place] [address] [facility] [address] [place] [address] 11/22/2022 00:00:00 11/22/2022 14:12:41 [id number] Phyllis Chavez MD [facility] Primary [place] [facility] [address] [facility] [address] [place] [address] 02/20/2023 12:10:58 02/20/2023 13:13:17 Iron deficiency anemia 92791269 D50.9 Vitamin D deficiency 347 85921 E55.9 Cobalamin deficiency 190 034742 E53.8 Essential hypertension 01238390 I10 Fatigue 63179880 R53.83 R94.6 History of bariatric surgical procedure 898824773 Z98.84 Gastroesop hageal reflux disease without esophagitis 184109267 K21.9 Avoid greasy/spi cy/acidic foodEat small, frequent mealsCall if any worsening symptoms including increased pain or blood in stools or if symptoms do not resolve in 14 days Dysuria 03809485 R30.0 [id number] Phyllis Chavez MD [facility] Primary [place] [facility] [address] [facility] [address] [place] [address] 03/26/2023 11:51:34 03/26/2023 12:32:05 Iron deficiency anemia 03461928 D50.9 recheck labsif persistent low ferritin, will refer to hematology , can't tolerate oral iron, s/p bariatric surgery Thyroid fu nction tests abnormal 198361023 R94.6 Acute sinusitis 19689976 J01.90 Hypoglycemia 956413712 E 16.2 [id number] Phyllis Chavez MD [facility] Primary [facility] [place] [facility] [address] [facility] [address] [place] [address] 04/16/2023 09:30:22 04/16/2023 12:38:29 Sprain of right ankle [id number] S93.401A XR showed no acute findings.A dvised to use RICE therapy. Progress activity as tolerated. Strain of knee 731294888 1 03 S86.911A More problemati c than ankle. XR showed no acute findings, mild tricompart mental OA.Advised to use RICE therapy. Progress activity as tolerated. If no improvemen t will send to ortho to evaluate further. [id number] Christin Joel NP [facility] Ortho Desmond Francis [address] [place] [address] 05/16/2023 10:25:25 05/16/2023 11:43:42 Pain of right knee joint [id number] 46278 M25.443 [id number] Phyllis Chavez MD [facility] Primary Care [address] [place] [address] 06/25/2023 11:26:11 06/25/2023 12:00:42 Constipation 29144089 K59.00 likely cause of RUQsenna has worked well for her in the pastrefill givenstay activepush clear fluidsok to eat bland diet when hungryER if worsening pain, fever, vomitingca ll Friday if no improvemen t Degenerati on of lumbar intervertebral disc 09807462 M51.36 not in good controld/c tylenol 4trial of tramadol 50 mg q6 hours prn paincontin ue gabapentin f/u in 3 months or sooner if needed [id number] Phyllis Chavez MD [facility] Primary Care [address] [place] [address] 07/02/2023 08:50:35 07/02/2023 09:26:48 Pain in right arm 786205942 M79.601 started after covid injection to right upper arm-couple s months agoHas started to create a fat necrosis (divot) in the skin, believed to be incidental finding Herpes zoster 3311759 B0 2.9 shingles pain/rash to right armtylenol 4 has not helped with pain BIDWill give valacyclov ir, prednisone , and percocetf/ u in 2 weeks [id number] Phyllis Chavez MD [facility] Primary Care [address] [place] [address] 07/16/2023 08:55:59 07/16/2023 09:57:02 Herpes zoster 8650688 B02.9 Shingles pain/rash continues to RUAHas only been taking one valacyclov ir/day d/t to confusion- reeducated on TID usagewill refill oxycodonef /u in 2 weeks Gastroesop hageal reflux disease without esophagitis [id number] K21.9 not getting full relief with use of famotidine Pt would like to try omeprazole add omeprazole [id number] Phyllis Chavez MD [facility] Primary Care [address] [place] [address] 08/21/2023 11:27:27 08/21/2023 12:05:42 History of total hip arthroplasty [id number] 06 Z96.649 surgery 07/28-succe ssful, d/c after 2 dayspain rated at 8/10, hydrocodon e with positive relief most of the time, ice prnROM and strength are improvings he is not doing physical therapy at this time, does exercises per self at home Herpes zoster 3179288 B0 2.9 -resolved Shingles pain/rash continues to RUas only been taking one valacyclov ir/day d/t to confusion- reeducated on TID usagewill refill oxycodonef /u in 2 weeks Seasonal allergy 3323187 04 J30.2 she has had issues with allergies for quite some timetakes zyrtec daily- with min reliefwill trial montelukas t and fluticason ef/u in 1 month Administra tion of influenza vaccine 15456422 Z23 [id number] Phyllis Chavez MD [address] [place] [address] 09/23/2023 11:18:54 09/23/2023 11:58:36 Weakness of left lower limb 4080502240 26760 M62.81 -Pt noting weakness/i nability to move left foot/ankle -has been an issue for a couple weeks-note s being very painful, swelling at times-note s continuous numbness to left foot-no injury or incident that she can recall-has not had xrays performed, xray ordered-wi ll also do EMG [id number] [facility]ICE [facility] Primary Care [address] [place] [address] 11/13/2023 09:11:56 11/13/2023 09:52:48 Weakness of left lower limb 0707265448 69901 M62.81 11-13-23- winston has not had the EMG completed d/t scheduling issues-she is complainin g of continued weakness to LLE-pain is not tolerable- ROM and strength are limited-nu mbness and tingling continues to left foot-will order PT-EMG ordered 09-21-23P t noting weakness/i nability to move left foot/ankle -has been an issue for a couple weeks-note s being very painful, swelling at times-note s continuous numbness to left foot-no injury or incident that she can recall-has not had xrays performed, xray ordered-wi ll also do EMG Osteoporosis 27366118 M8 1.0 -her hip surgeon questioned why she was not on a med for osteoporos is-pt had dexa in 2020 confirming diagnosis- she is wanting injections -will trial prolia Thyroid fu nction tests abnormal 692501601 R94.6 -notes hx of abnormal labs-she notes that she was supposed to be referred to endo but never got a referral-l abs obtained Degenerati on of lumbar intervertebral disc 40716690 M51.36 [id number] Phyllis Chavez MD [facility] [address] [place] [address] 01/29/2024 12:12:27 01/29/2024 12:41:36 Weakness of left lower limb 6621584654 59157 M62.81 01-29-24-pt was unable to get into PT d/t insurance issues-has been up walking more for exercise-s he has noted improvemen t in her condition- numbness/t ingling has resolved to left foot-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-n o further tx needed 11-13-23- winston has not had the EMG completed d/t scheduling issues-she is complainin g of continued weakness to LLE-pain is not tolerable- ROM and strength are limited-nu mbness and tingling continues to left foot-will order PT-EMG ordered 09-21-23-P t noting weakness/i nability to move left foot/ankle -has been an issue for a couple weeks-note s being very painful, swelling at times-note s continuous numbness to left foot-no injury or incident that she can recall-has not had xrays performed, xray ordered-wi ll also do EMG 2+ pitting edema 3371292 05 R60.9 -currently 2+ pitting to nohelia lower extrem-has noted them weeping at times-no sob-not currently on water pill-trial daily furosemide Pain of ri ght knee joint 7056879895 60720 M25.561 -chronic, stable-jennifer n rated at 5/10-ROM and strength are limited to pain-has not been using the meloxicam d/t stomach ache- trial diclofenac , encouraged to eat before taking [id number] [facility]ICE [facility] Primary Care [facility] [address] [place] [address] 04/14/2024 11:44:16 04/14/2024 12:05:36 [id number] Dao Bob MD [address] [address] 06/18/2024 10:40:45 06/18/2024 11:53:10 Hypoglycemia 798705941 E16.2 Screening for osteoporosis 298004384 Z13.820 Depressive disorder 3548 9007 F32.A Gastroesop hageal reflux disease without esophagitis 555296259 K21.9 Screening for malignant neoplasm of colon 320622139 Z12.11 Screening mammography 24 720008 Z12.31 Interverte bral disc prolapse 49396797 M51.9 Pain management referral placedUDS and CSA UTDPDM verified Open wound of left lower leg 8821977454 4171256 S81.802A Adult heal th examination 839025162 Z00.00 Thyroid fu nction tests abnormal 049980881 R94.6 [id number] Dao Bob MD [address] [address] 06/25/2024 09:49:21 06/25/2024 10:23:35 Type 2 diabetes mellitus 15016501 E11.8 Nocturnal hypoglycem ia [id number] Dao Bob MD [facility] [address] [place] [address] 07/21/2024 09:51:28 07/21/2024 10:39:52 Screening for osteoporosis 316751182 Z13.820 Interverte bral disc prolapse 02765878 M51.9 UDS and CSA UTDPDM verifiedAd vised to take acetaminop hen 650 mg TIDContinu e diclofenac Space out [place] to three times daily Chronic ulcer of skin 19 738577 L98.598 [id number] [facility] [address] [place] [address] 07/26/2024 11:55:54 07/26/2024 13:50:24 Open wound of left lower leg 7189149564 6415002 S81.802A Open wound of lower leg 206923977 S81.802A [id number] [facility] [address] [place] [address] 08/02/2024 11:51:48 08/02/2024 13:38:09 Open wound of lower leg 953897098 S81.802A Patients pedal and left dorsalis pulses were not found, but present last week. They were faint on the previous visit. We are pending results on HARDEEP and doppler. Patients wound is healing and should return next week. Depending on results of HARDEEP and doppler, patient will be scheduled for further interventi on. Continue to wrap and bandage, keep dry and clean. Call if further pain, drainage or if leg feels cold [id number] [facility] [address] [place] [address] 08/09/2024 10:58:21 08/09/2024 13:31:18 Open wound of lower leg 886481183 S81.802A Patients pedal and left dorsalis pulses were found. They were faint on the previous visit. Patients wound is healing and should return next week. The wound is smaller and healing. Continue to wrap and bandage, keep dry and clean. Call if further pain, drainage or if leg feels cold [id number] Evelia Huston PA-C [facility] [address] [place] [address] 08/16/2024 10:51:20 08/19/2024 11:25:21 [id number] Neftaly Huston MD [facility] [address] [place] [address] 08/30/2024 10:50:28 08/30/2024 11:41:09 Venous insufficiency of leg 341390789 I87.2 [id number] Dao Bob MD [address] [address] 09/28/2024 16:29:22 09/28/2024 17:08:50 Pain of right hip joint 1828792470 84401 M25.551 Neuropathy 970297870 G62 .9 Acute bact erial sinusitis 03158053 J01.90 Degenerati on of lumbar intervertebral disc 21620239 M51.369 Unable to continue care with pain management due to drive and cost, they were not providing medication s [id number] Dao Bob MD [address] [address] 10/15/2024 10:56:24 10/15/2024 11:53:38 Pain of right hip joint 3125042115 45969 M25.551 Patient has XR orderPatie nt does not want PTShe is taking tylenol with codine and notes some improvemen t, best control is from gabapentin , currently taking 800 mg BID morning and night [id number] Dao Bob MD [address] [address] 11/17/2024 13:51:34 11/17/2024 15:10:27 Constipation 19872244 K59.00 Well managed with senna and miralax Fracture of pelvis 47694 009 S32.9XXD Transition of care 44472 51824 105 Z75.8 Recently DC'd from [facility] with pelvic fractures, has FU scheduled with orthoI will bridge medication s at this time Night sweats 75072437 R6 1 [id number] Dao Bob MD [facility] [address] [place] [address] 12/09/2024 14:31:42 12/09/2024 15:17:48 Swelling of lower leg 645306836 R22.40 left sided, popliteal/ medial knee. Heat, erythema Fracture of pelvis 87057 009 S32.9XXD Attempting to taper offILPDMR verifiedmo nthly FU scheduled [id number] Dao Bob MD [facility] [address] [place] [address] 01/28/2025 11:45:05 01/28/2025 12:39:17 Pain of hip region 92392058 M25.559 Will double hydrocodon e 5 mg as needed for severe painWill repeat XRFU with orthoFU with oncology Long-term current use of opiate analgesic drug 4951605263 20607 Z79.891 Health Concerns Section Related Observation LastModified by Organization Detai ls LastModified Time None Recorded Concern Status LastModified by Organization Details LastModified Time None Recorded Advance Directives Directive N: Payers Insurance Date Sequence Insurance Name Policy Number Policy Urias Covered Member ID Urias Member ID Guarantor Name 02/04/2025 1 [facility] OR AFTER 04/26/21 (MEDICAID REPLACEMENT - HMO) Jaylyn Naranjo [id number] Jaylyn Naranjo Notes Date Note Type Note Provider Name and Address Organization Details Recorded Time 09/28/2024 text/html Patient is a 59-year-old female presenting with complaints for a sinus infection. She has lots of pressure in her head and when she blows her nose, there is thick green and yellow discharge. No fever, nausea, or vomiting. Symptoms have been going on for a week. She also has significant right hip pain. She had surgery for broken hip about a year ago in July but never had PT. She started moving a couple of weeks ago and felt a pop in her hip on Friday. She has had significant pain when walking and sitting that only improves with lying on her back. Used to follow with pain management and was previously taking Lyrica. Jamshid Larose, MAURICE [address], [place], [address], Exacter 09/28/2024 17:14:03 10/15/2024 text/html Jaylyn Naranjo is a 59 year old female patient here today to FU on right hip pain She states the pain in her right hip is unbearable. Difficulty with ROM and pain with sitting. Unable to do activities of daily life. Pain radiates to foot MAURICE Nettles [address], [place], [address], Ex[employer] 10/15/2024 11:51:47 11/17/2024 text/html Jaylyn Naranjo is a 59 year old female paitent here today for a hospital FU She was admitted to [facility] on 11/03-. She has NOHELIA pelvic fractures from an unknown cause. Her pain is still severe. She cannot tolerate sitting or standing. She must lay supine which then causes back pain.No pain relief with [place] 5/325 or 10/325 From Discharge paper:Pls ensure patient has home health for physical therapy; Per case management, has been denied by 5 companies so far. Outpt PT referral placed as a back-up, but patient has not been approved on discharge --- pt spoke with case management yesterday and was told they are still working on this Consider decreasing dose of gabapentin-- Currently taking 1,000 mg TID, will decrease to 800 mg TID Ensure patient is having regular BM given increase in home opioid pain medication -- is going regularly, taking gavilax and senna PRN Ensure patient knows how to use Narcan; this was discussed with her prior to discharge -- pt aware Pt to follow-up with Dr. Quinn (ortho) --- appt scheduled for 11/30/24 Does have osteoporosis, is taking alendronate 70 mg, when healed will repeat DEXA MAURICE Nettles [address], [place], [address], Exacter 11/17/2024 15:11:11 12/09/2024 text/html Jaylyn Naranjo is a 59 year old female patient here today for left knee pain. She notes that her left knee is getting really warm and is swollen. Pain is mostly medial left knee, radiated to inner groin Currently has multiple idiopathic fractures of the pelvis. Has seen ortho at [facility], was told this will heal.Still having severe pain, is spacing oxycodone out MAURICE Nettles [address], [place], [address], [employer] [facility] 12/09/2024 15:17:47 01/28/2025 text/html Jaylyn Naranjo is a 59 year old female patient here today for left hip pain. She recently fell in her yard onto her bottom and has worsening back of the left hip. States [place] 5/325 mg has not been effective in pain control Currently has multiple idiopathic fractures of the pelvis. Has seen ortho at [facility], was told this will heal.Still having severe pain, is spacing oxycodone out Has appointment with oncology scheduled for the end of January. MAURICE Nettles [address], [place], [address], [employer] [facility] 01/28/2025 12:26:01 OBGyn Episode No OBEpisode recorded.
[2025-04-12 15:04] LABS: Macrocytosis 1+ (NORMAL); Platelet Estimate Adequate (Adequate); Schistocytes None Seen
[2025-04-12 16:39] LABS: Alanine Aminotransferase 18 U/L (6-35); Albumin Level 3.4 g/dL (3.5-5.1); Alkaline Phosphatase 151 U/L (38-126); Anion Gap 8 mmol/L (4-12); Aspartate Amino Transferase 52 U/L (14-36); Bilirubin,Total 0.3 mg/dL (0.2-1.3); Blood Urea Nitrogen 20 mg/dL (7-17); Calcium 8.4 mg/dL (8.4-10.2); Carbon Dioxide 20 mmol/L (22-30); Chloride 111 mmol/L (98-107); Estimated Glomerular Filt Rate 55; Glucose 77 mg/dL (65-110); Lactate Dehydrogenase 267 U/L (120-246); Potassium 3.7 mmol/L (3.4-5.0); Sodium 139 mmol/L (137-145); Total Protein 6.9 g/dL (6.3-8.2)
[2025-04-12 16:40] LABS: Iron 28 ug/dL (37-170)
[2025-04-12 16:52] LABS: Percent Iron Saturation 10 % (20-50)
[2025-04-12 17:14] LABS: Ferritin 9.61 ng/mL (11.1-264)
[2025-04-12 17:43] LABS: Folic Acid 4.5 ng/mL (2.76->20)
[2025-04-15 16:38] LABS: Methylmalonic Acid 303 nmol/L (69-390)
[2025-04-16 13:12] LABS: Soluble Transferrin Receptor 2.74 mg/L (0.76-1.76)
== END 2025-04-12 14:06 | disposition home or self-care (01) ==
LOC: ANHLAB 14:06
PROVIDERS: PCP Family Medicine; Visit Provider Internal Medicine Hematology & Oncology
DX: D64.9 Anemia, unspecified (principal)
CPT/HCPCS: 36415; 80053; 82607; 82728; 82746; 83540; 83550; 83615; 83921; 84238; 85025; 85055

== ENCOUNTER 2025-05-13 10:19 | Outpatient (CLI) | payer OTHER, SELFPAY ==
--- OUTSIDE RECORDS SUMMARY | 2025-05-13 10:22 | XMS_ITS | Clinical Summary ---
Author Organization [facility] Address [address] [place] [address] Phone Care Team Providers Care Device Processing Engineer Name Role Phone Unavailable Primary Care Provider [...] 5 Active fluticasone propionate (FLONASE) 50 mcg/spray [place], Suspension nasal inhaler SHAKE LIQUID AND USE [...] daily. 3 Active naloxone (NARCAN) 4 mg/spray [place], Non-Aerosol CALL 911. SPR CONTENTS OF ONE [...] Encounters Date Type Department Care Team Description 04/26/2025 4:30 PM CDT Telephone Check Up [facility] Oncology and Hematology [facility] [address] [place] [address] Luis Osman MD Chronic anemia (Primary Dx); Iron deficiency anemia, unspecified iron deficiency anemia type 04/20/2025 Orders Only [facility] Oncology [facility]ology - [place] [address] [place] [address] Luis Osman MD 04/19/2025 External Device Data ST[facility] ABSTRACTION Provider, Abstract 04/19/2025 External Device Data [place] ABSTRACTION Provider, Abstract 04/19/2025 External Device Data [place] ABSTRACTION Provider, Abstract 04/19/2025 Orders Only [facility]cology [facility]ology - [place] [address] [place] [address] Luis Osman MD 04/12/2025 1:30 PM CDT Office Visit [facility] - [place] [address] [facility] [address] [place] [address] Luis Osman MD Chronic anemia (Primary [...] on file 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 [address] [place] [address] Health Maintenance Due Date Last Done Comments DIABETES ANNUAL FOOT EXAM 1983 DIABETES ANNUAL RETINAL EXAM 1983 DIABETES MICROALBUMIN ANNUAL SCREEN 1983 LDL CHOLESTEROL ANNUAL 1983 Preventative Visit-Managed Medicaid 02/01/1984 BREAST CANCER SCREENING 2005 COLORECTAL SCREENING 2010 Colorectal Cancer Screening 2010 FIT-DNA Q 3 years 2010 FIT/FOBT Q 1 year 2010 Flex Sig/CT Colonography Q 5 years 2010 Lung Cancer Screening 2015 ZOSTER VACCINE (1 of 2) 2015 COVID-19 Vaccine ( season) 2024 01/23/2022, 02/02/2021, 01/05/2021 DTAP/TDAP/TD VACCINES (2 - Td or Tdap) 06/30/2024 06/30/2014 DIABETES HBA1C Q 6 MONTHS 05/05/2025 11/05/2024 INFLUENZA VACCINE (#1) 2025 3, 10/22/2022, 08/01/2021, Additional history exists RSV VACCINE (60+ or ) (1 - 1-dose 75+ series) 02/01/2040 HEPATITIS B VACCINES Aged Out No long er eligible based on patient's age to complete this topic Procedures Procedure Name Priority Date/Time Associated Diagnosis Comments COMPREHENSIVE METABOLIC PANEL Routine 04/12/2025 4:43 PM CDT CBC WITH DIFFERENTIAL Routine 04/12/2025 4:23 PM CDT TRANSFERRIN RECEPTOR TFR SOLUBLE Routine 04/12/2025 10:52 AM CDT from Last 3 Months Results * COMPREHENSIVE METABOLIC PANEL (04/12/2025 4:43 PM CDT) Blood us Luis Osman MD CHEMISTRY ORDERABLES Final Resu lt * CBC WITH DIFFERENTIAL (04/12/2025 4:23 PM CDT) Blood us Luis Osman MD HEMATOLOGY ORDERABLES Final Res ult * TRANSFERRIN RECEPTOR TFR SOLUBLE (04/12/2025 10:52 AM CDT) Blood Luis Osman MD CHEMISTRY ORDERABLES Final Resu lt from Last 3 Months Insurance
--- OUTSIDE RECORDS SUMMARY | 2025-05-13 10:22 | XMS_ITS | Referral Summary ---
Author Organization [facility] Address [address] [place] [address] Care Team Providers Care Aircraft Charter Dispatcher Name Role Phone Cesar Landin DO Unavailable [phone] Phyllis Chavez MD Primary Care Provider + Allergies Active Allergy Reactions Criticality Noted Date Comments Baclofen Hallucinations Medium 01/02/2021 Medications acetaminophen-c odeine (TYLENOL with CODEINE #4) 300-60 mg per tablet Take 1 tablet by mouth every 6 (six) hours as needed 12/13/2020 Active albuterol HFA (PROVENTIL HFA,VENTOLIN HFA,PROAIR HFA) 90 mcg/actuation inhaler 01/01/2021 Active cyclobenzaprine (FLEXERIL) 10 mg tablet 01/01/[address] (CYMBALTA) 60 mg capsule Take 60 mg by mouth daily Take 1 capsule by mouth daily with 30mg capsule for a total of 90mg 12/13/2020 Active famotidine (PEPCID) 40 mg tablet Take 40 mg by mouth daily 12/13/2020 Active gabapentin (NEURONTIN) 600 mg tablet 01/01/2021 Active metoprolol XL (TOPROL-XL) 50 mg extended release tablet Take 50 mg by mouth daily 12/14/2020 Active OneTouch Delica Plus Lancet 33 gauge misc 11/15/2020 Active OneTouch Ultra Blue Test Strip strip 01/01/2021 Active phentermine (ADIPEX-P) 37.5 mg tablet Take 37.5 mg by mouth daily 12/14/2020 Active topiramate (TOPAMAX) 50 mg tablet Take 100 mg by mouth daily 01/01/2021 Active Active Problems Problem Noted Date Diagnosed Date Iron deficiency anemia due to chronic blood loss 01/02/2021 Immunizations Immunization Administration Dates Next Due Influenza, Quadrivalent, Spl it, Preservative Free, Intramuscular 08/08/2020,07/14/2018,07/31/2015 Influenza, Trivalent, Preser vative Free, Intramuscular 10/09/2011,08/14/2009,08/03/2008,08/14,10/14/2006 Moderna SARS-CoV-2 Monovalen t Vaccination (12+ YRS) 12/29/2020 Pfizer SARS-CoV-2 Monovalent Vaccination (12+ Yrs) PURPLE 02/02/2021 Social History Tobacco Use Types Packs/Day Years Used Date Smoking Tobacco: Every Day Cigarettes 1 35 Smokeless Tobacco: Never AUDIT-C Answer Date Recorded Q1: How often do you have a drink containing alc ohol? 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 Not on file Not on file Last Filed Vital Signs Vital Sign Reading Time Taken Comments Blood Pressure 110/68 03/13/2021 9:00 AM CDT Pulse 72 03/13/2021 9:00 AM CDT Temperature 36.4 C (97.5 F) 03/13/2021 9:00 AM CDT Respiratory Rate 16 02/06/2021 2:04 PM CDT Oxygen Saturation 100% 02/06/2021 2:04 PM CDT Inhaled Oxygen Concentration - - Weight 78.5 kg (173 lb) 03/13/2021 9:00 AM CDT Height 167.6 cm (5' 6) 03/13/2021 9:00 AM CDT Body Mass Index 27.92 03/13/2021 9:00 AM CDT Plan of Treatment Not on file Insurance Care Teams Aircraft Charter Dispatcher Relationship Specialty Start Date End Date Phyllis Chavez MD [address] [place] [address] [address] [place] [address] PCP - General Family Medicine 12/22/23 Cesar Landin DO [address] [place] [address] MEDICAL ONCOLOGY, [facility] [address] [place] [address] Medical Oncologist/Label Remover Hematology and Oncology 02/02/21
--- OUTSIDE RECORDS SUMMARY | 2025-05-13 10:22 | XMS_ITS | Clinical Summary ---
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 Medical History Medical History Date Comments Type 2 diabetes mellitus wit h diabetic polyneuropathy (HCC) Diabetic peripheral neuropat hy - (Added by TW Conv) Age-related osteoporosis wit hout current pathological fracture Osteoporosis - (Added by TW Conv) Epilepsy (HCC) Anxiety Arthritis Osteoporosis Hypertension Anxiety and depression Morbid obesity (HCC) GERD (gastroesophageal reflux disease) Seizures (HCC) Family History Medical History Relation Name Comments Diabetes Father Diabetes Mother Heart failure Mother Colon cancer Sister 1 No Known Problems Sister 2 No Known Problems Sister 3 No Known Problems Sister 4 No Known Problems Sister 5 Relation Name Status Comments Father Mother Sister 1 (Age 50) Sister 2 Alive Sister 3 Alive Sister 4 Alive Sister 5 Alive Social History Tobacco Use Types Packs/Day Years [...] on file Legal Sex Female 12:25 PM [employer]MIUM PL[employer] Gender Identity Not on file Sexual Orientation Not on file 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 Not on file Not on file Obstetrics History Last Filed Vital Signs Vital Sign Reading [...] 03/13/2021 9:00 AM CDT Plan of Treatment Health Maintenance Due Date Last Done Comments Breast Cancer Screening-Mammogram 1965 Cervical Cancer Screening 1965 Colon Cancer Screening-Colonoscopy 1965 Depression Screening 1965 Hepatitis C Screening 1965 DTaP/Tdap/Td Vaccine (1 - Tdap) 02/01/1976 Hepatitis B Screening 1983 Regular Well Visit/Exam 18-64 1983 Pneumococcal vaccine <65 (1 of 2 - PCV) 02/01/1984 Zoster Vaccine (1 of 2) 2015 Covid-19 Vaccine (3 - 2023-2 5 season) 2024 02/02/2021, 12/29/2020 Influenza Vaccine (Season Ended) 2025 08/08/2020, 07/14/2018, 07/31/2015, Additional history exists Insurance [facility] Care Teams Payroll Coordinator Relationship Specialty Start Date End Date Phyllis Chavez MD [address] [place] [address] [facility] [address] [place] [address] PCP - General Family Medicine 12/22/23 Cesar Landin DO [address] [place] [address] MEDICAL ONCOLOGY, [address] [address] Medical Oncologist/Show Dog Trainer Hematology and Oncology 02/02/21
--- OUTSIDE RECORDS SUMMARY | 2025-05-13 10:22 | XMS_ITS | Clinical Summary ---
Author Organization [facility] Address [address] [place] [address] Care Team Providers Care Manager Forms Name Role Phone Bety Queen Primary Care Provider [phone] Source Comments [facility],non-owned Affiliates and Associated Physician Practices is amultiple site organization consisting of ambulatory clinics and hospital sitesin [place], [place], [place] and [place]. This disclosure is being madepursuant to the Care Everywhere program and may not contain all information available regarding this patient. Last updated 18.[facility] Allergies Active Allergy Reactions Criticality Noted Date [...] daily 510 g 1 11/11/2024 3:53 PM [employer]YRUP [employer] 5 Active sennosides (Senokot) 8.6 MG tablet Take 2 (two) tablets by mouth once daily 60 tablet 1 11/11/2024 3:53 PM [employer] 5 Active methocarbamol (Robaxin) 750 MG tablet Take 1 (one) tablet by mouth 3 times daily 30 tablet 2 11/11/2024 3:53 PM [employer] 5 Active vitamin D3 (Cholecalcifer ol) 25 MCG (1000 UNITS) tablet Take 1 (one) tablet by mouth once daily 30 tablet 1 11/11/2024 3:53 PM [employer] 5 Active gabapentin (Neurontin) 800 MG tablet Take 1 (one) tablet by mouth 3 times daily 30 tablet 2 11/11/2024 3:53 PM [employer] 5 Active gabapentin (Neurontin) 100 MG capsule Take 2 (two) capsules by mouth 3 times daily 60 capsule 2 11/11/2024 3:53 PM [employer] 5 Active naloxone HCl (Narcan) 4 MG/0.1ML nasal spray [place] 1 (one) spray into the nose as needed 2 Each 11/11/2024 3:53 PM [facility] [facility] 5 Active HYDROcodone-ac etaminophen ([place]) 10-325 MG tabletIndicati ons:Pubic ramus fracture, left, closed, initial encounter ([facility]),Other fracture of sacrum, initial encounter for closed fracture ([facility]) Take 1 (one) tablet by mouth every [...] Recorded Patient Health Questionnaire-2 Score 0 11/30/2024 [facility] - Occupational Stress Questionnaire Answer Date Recorded [...] any time in the past 12 m [facility], were you homeless or living in a half-way (including now)? No 11/04/2024 Comments Unknown Sex and Gender Information Value Date Recorded Sex Assigned at Not on file Legal Sex Female 6:23 AM [employer] Gender Identity Not on file Sexual Orientation Not on file Last Filed Vital Signs Vital Sign Reading Time Taken Comments Blood Pressure 142/73 11/15/2024 9:14 AM [employer] Pulse 74 11/15/2024 9:14 AM [employer] Temperature 36.1 C (97 F) 11/15/2024 9:14 AM [employer] Respiratory Rate 18 11/15/2024 9:14 AM [facility] Oxygen Saturation 96% 11/15/2024 9:14 AM [employer] Inhaled Oxygen Concentration - - Weight 70.3 kg (155 lb) 11/30/2024 12:09 PM [employer] Height 170.2 cm (5' 7) 11/30/2024 12:09 PM [employer] Body Mass Index 24.28 11/30/2024 12:09 PM [employer] Plan of Treatment Health Maintenance Due Date [...] 2 - PCV) 02/01/1984 PAP SMEAR 1986 DIABETES-STATIN 2005 ZOSTER VACCINE (1 of 2) 2015 COVID-19 VACCINE ( season) 2024 01/23/2022, 02/02/2021, 01/05/2021 DIABETES - URINE PROTEIN SCREENING 10/27/2024 DIABETES RETINOPATHY SCREENING 11/05/2024 DIABETES-FOOT EXAM WITH MONOFILAMENT 11/05/2024 Respiratory Syncytial Virus (RSV) Vaccine Pt: or over 60 yrs (1 - Risk 60-74 years 1-dose series) 2025 DIABETES-HGB A1C 05/05/2025 11/05/2024 INFLUENZA VACCINE (#1) 2025 , 10/22/2022, 08/01/2021, Additional history exists DIABETES-SERUM CREATININE [...] FUNCTION PANEL AM Draw 11/11/2024 1:28 AM [facility] HEMOGLOBIN A1C Routine 11/05/2024 12:40 AM [facility]UP [employer]ER from Last 3 Months or Most Recently Relevant to Health Maintenance Results * (ABNORMAL) RENAL FUNCTION PANEL (11/11/2024 1:28 AM [facility]UP [employer]ER) BUN 16 7 - 26 mg/dL 11/11/2024 2:59 AM [facility] Creatinine 0.74 0.56 - 0.96 mg/dL 11/11/2024 2:59 AM [facility] Sodium 137 136 - 145 mmol/L 11/11/2024 2:59 AM [facility] Potassium 4.3 3.5 - 4.5 mmol/L 11/11/2024 2:59 AM [facility] Chloride 109(H) 98 - 107 mmol/L 11/11/2024 2:59 AM [facility] CO2 21(L) 22 - 29 mmol/L 11/11/2024 2:59 AM [facility] Glucose 74 70 - 99 mg/dL 11/11/2024 2:59 AM [facility] Albumin 2.1(L) 3.4 - 5.0 g/dL 11/11/2024 2:59 AM [facility] Calcium 8.1(L) 8.4 - 10.2 mg/dL 11/11/2024 2:59 AM [facility] Phosphorus 4.2 2.9 - 5.1 mg/dL 11/11/2024 2:59 AM [facility] Anion Gap 7 6 - 16 11/11/2024 2:59 AM [facility] BUN/Creatinine Ratio 22 7 - 23 11/11/2024 2:59 AM [facility] Osmolality Calculated 284 275 - 295 mOsm/kg 11/11/2024 2:59 AM [facility] eGFR by CKD-EPI >90 >=90 mL/min/1.7 3 m2 11/11/2024 2:59 AM [facility] Blood BLOOD SPECIMEN / Unknown Lab Venipuncture / Unknown 11/11/2024 1:28 AM [facility] 11/11/2024 2:27 AM [facility] Tray Licona MD LAB - CHEMISTRY ORDERABLES Fi nal Result Performing Organization Address City/[facility] Co de Phone Number [facility] [address] [place] [address], [facility] [phone] * HEMOGLOBIN A1C (11/05/2024 12:40 AM [facility]) Hemoglobin A1c 4.8 <=5.6 % 11/05/2024 9:12 AM [facility] Estimated Average Glucose 91 mg/dL 11/05/2024 9:12 AM [facility] Comment: HbA1c Interpretation: Normal : < 5.7% Pre-diabetes: 5.7-6.4% Diabetes: Equal to or greater than 6.5% Test results diagnostic of diabetes should be repeated for confirmation. Treatment target values recommended by ADA and other clinical organizations should be used to evaluate metabolic control in patients. Reference: [place] [employer] Association, Standards of Care in Diabetes -2020 In patients 70 years and older consider HbA1c target range of 7.0-7.5% (Reference: Jordan Mcgee et al. JAMDA. 2012) The Sebia assay for the measurement of HbA1c is a National Glycohemoglobin Standardization Program (NGSP) certified method. Blood BLOOD SPECIMEN / Unknown Lab Venipuncture / Unknown 11/05/2024 12:40 AM [facility] [facility] 11/05/2024 1:17 AM [facility] Tray Licona MD LAB - CHEMISTRY ORDERABLES Fi nal Result [facility] [address] [place] [address], [facility] [phone] from Last 3 Months or Most Recently Relevant to Health Maintenance Insurance Advance Directives * Full Code (Latest Code Status on File) Date Activated Date Inactivated Comments 11/04/2024 8:11 AM 11/11/2024 6:56 PM Care Teams Manager Forms Relationship Specialty Start Date End Date Bety Queen [address] [place] [phone] PCP - General 11/04/24
[2025-05-13 10:40] LABS: Hematocrit 38.3 % (37.0-47.0); Hemoglobin 12.0 g/dL (12.0-15.0); Mean Corpuscular HGB Conc 31.3 g/dl (32-36); Mean Corpuscular Hemoglobin 33.3 pg (26-34); Mean Corpuscular Volume 106.4 fl (80-100); Platelet Count Result 311 k/mm3 (150-375); Red Blood Count 3.60 M/mm3 (4.2-5.4); White Blood Count 8.0 K/mm3 (4.5-10.0)
[2025-05-13 11:18] LABS: Iron 32 ug/dL (37-170)
[2025-05-13 11:39] LABS: Percent Iron Saturation 12 % (20-50)
[2025-05-13 12:00] LABS: Ferritin 7.27 ng/mL (11.1-264)
[2025-05-13 12:20] LABS: Vitamin B12 924.0 pg/mL (239-931)
== END 2025-05-13 10:20 | disposition home or self-care (01) ==
PROVIDERS: Visit Provider Internal Medicine Hematology & Oncology
DX: D64.9 Anemia, unspecified (principal)
CPT/HCPCS: 36415; 82607; 82728; 82746; 83540; 83550; 85027